=== PATIENT | male | born 1950 | race Caucasian/White ===

== ENCOUNTER → 2016-12-29 | Outpatient (CLI) | payer MEDICARE, BC ==
--- NOTE | 2016-12-29 16:47 | KCIC ---
EXAM: Lumbar spine MRI without contrast. HISTORY: Left lower extremity radiculopathy. TECHNIQUE: Multiplanar, multisequence magnetic resonance imaging of the lumbar spine was performed without contrast. COMPARISON: 04/10/2016 FINDINGS: There is grade 2 anterolisthesis of L5 on S1, measuring 17 mm. There are associated pars interarticularis defects at this level. There is 3 mm retrolisthesis of L4 and L5 and 2 mm retrolisthesis of L1 on L2. There is degenerative endplate remodeling with disc space narrowing and osteophytosis primarily at L5-S1. No suspicious osseous lesion is seen. There is no fracture. There is a small right renal cyst. The conus terminates at L1. At T11-T12, there is a shallow right paracentral disc protrusion superimposed on a disc bulge and endplate remodeling. There is minimal facet arthropathy. There is mild bilateral foraminal stenosis. At T12-L1, there is a minimal disc bulge and endplate remodeling. There is no stenosis. At L1-L2, there is a disc bulge with bilateral foraminal extra foraminal annular tears and endplate remodeling. There is no stenosis. At L2-L3, there is a disc bulge and endplate remodeling. There is no stenosis. At L3-L4, there is a broad-based left paracentral to foraminal disc protrusion and annular tear with minimal superior extrusion, minimally compared to the prior study. The superimposed on a bulge and endplate remodeling. There is no stenosis. At L4-L5, there is a shallow posterior central disc protrusion and annular tear superimposed on a disc bulge and endplate remodeling. There is mild facet arthropathy. There is no stenosis. At L5-S1, there is a disc bulge and endplate osteophytosis. There is grade 2 anterolisthesis with pars defects. There is severe bilateral foraminal stenosis. IMPRESSION: 1. Multilevel degenerative changes of the lumbar spine, described in detail above. This is not significantly changed compared to the prior study, with exception of suspected minimal decrease in a protrusion with minimal superior extrusion at L3-L4. 2. Stable grade 2 anterolisthesis of L5 on S1 with associated pars defects. The combination of listhesis and a disc bulge with endplate osteophytosis results in severe foraminal stenosis at this level. Electronically signed by: Vicky Smith MD (12/29/2016 4:44 PM) [facility]
== END | disposition home or self-care (01) ==
LOC: KCIC MRI 15:49
PROVIDERS: ATTEND Neurological Surgery
DX: M51.16 Intervertebral disc disorders with radiculopathy, lumbar region (principal); M47.896 Other spondylosis, lumbar region
CPT/HCPCS: 72148

== ENCOUNTER → 2017-01-15 | Outpatient (CLI) | payer MEDICARE, BC ==
[~2017-01-15] MED LIST: ASPI-482 PO; ATORVASTATIN CA80 MG PO; CETI10TA16 PO; DILT240C2 PO; DOCU-109 PO; OXYC10TA PO; OXYC10TA45 PO; PARO20TA3 PO; TAMS0.4C2 PO; TIZA4TAB PO
--- NOTE | 2017-01-15 15:38 | EKG ---
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
[2017-01-15 15:51] LABS: BASO % 1 % (0-3); EOS % 3 % (0-3); HEMATOCRIT 42.1 % (39.0-53.0); LYMPH % 26 % (24-48); MEAN CORPUSCULAR HEMOGLOBIN 32 pg (25-35); MEAN CORPUSCULAR HGB CONC 33 g/dL (31-37); MEAN CORPUSCULAR VOLUME 95 fL (79-100); MONO % 11 % (0-9); NEUT % 60 % (31-73); PLATELET COUNT 180 x10^3/uL (140-400); RED BLOOD COUNT 4.42 x10^6/uL (4.30-5.70); RED CELL DISTRIBUTION WIDTH 12.9 % (11.5-14.5); WHITE BLOOD COUNT 7.8 x10^3/uL (4.0-11.0)
[2017-01-15 16:13] LABS: ALBUMIN 3.9 g/dL (3.4-5.0); ALBUMIN/GLOBULIN RATIO 1.3 (1.0-1.7); CALCIUM 8.7 mg/dL (8.5-10.1); CREATININE 0.8 mg/dL (0.7-1.3); GFR 96.7; POTASSIUM 3.6 mmol/L (3.5-5.1); TOTAL BILIRUBIN 1.3 mg/dL (0.2-1.0)
[2017-01-15 16:17] LABS: PROTHROMBIN TIME PATIENT 12.4 SEC (11.7-14.0)
== END | disposition home or self-care (01) ==
LOC: SURGPAT 13:54
PROVIDERS: ATTEND Neurological Surgery
DX: I10 Essential (primary) hypertension (principal); M54.16 Radiculopathy, lumbar region; M48.06 Spinal stenosis, lumbar region; M43.16 Spondylolisthesis, lumbar region
CPT/HCPCS: 36415; 80053; 85025; 85610; 85730; 87641; 93005

== ENCOUNTER 2017-01-20 10:54 | Emergency (ER) | payer MEDICARE, BC ==
[~2017-01-20] VITALS: Ht 188 cm; Wt 89.8 kg
--- NOTE | 2017-01-20 12:21 | PHYS DOC ---
Past Medical History Past Medical History: CAD, High Cholesterol, Hypertension Past Surgical History: Other Additional Past Surgical Histo: stents Alcohol Use: Heavy Drug Use: None Adult General Chief Complaint Chief Complaint: FEVER HPI HPI Patient is a 66 year old male who had recent spinal surgery on by Dr. Owens. Patient has been doing well but yesterday started spiking fevers. patient states she's been having more frequent urination. Denies any cough or chest discomfort, pain with inspiration. Denies any neck chest or abdominal pain. He has some mild discomfort at the area of the surgery but is not any worse than when he was discharged. No sick contacts. Review of Systems Review of Systems Constitutional: Yes to fevers HENT: Denies nasal congestion or sore throat, no neck pain Respiratory: Denies cough or shortness of breath [] Cardiovascular: No chest pain[] GI: Denies abdominal pain, nausea, vomiting, bloody stools or diarrhea [] : Denies dysuria or hematuria. Yes to frequency of urination Musculoskeletal: Denies back pain or joint pain [] Integument: Denies rash or skin lesions [] Neurologic: Denies headache, focal weakness or sensory changes [] Current Medications Current Medications Current Medications Medications (Trade) Dose Ordered Sig/Britney Start Time Stop Time Status Last Admin Dose Admin Morphine Sulfate 4 mg 1X ONCE 01/20/17 14:30 01/20/17 14:31 DC 01/20/17 14:15 4 MG Allergies Allergies Allergies Coded Allergies Type Severity Reaction Last Updated Verified No Known Drug Allergies 01/18/17 No Physical Exam Physical Exam Constitutional: Well developed, well nourished, no acute distress, non-toxic appearance. [] HENT: Normocephalic, atraumatic, bilateral external ears normal, oropharynx moist, no oral exudates, nose normal. [] Eyes: EOMI, conjunctiva normal, no discharge. [] Neck: Normal range of motion, no tenderness, supple, no stridor. No LAD, no meningeal signs Cardiovascular:Heart rate regular rhythm, no murmur, equal pulses, normal perfusion Lungs & Thorax: Bilateral breath sounds clear to auscultation, no tachypnea Abdomen: Bowel sounds normal, soft, no tenderness, no masses, no pulsatile masses. [] Skin: Warm, dry, no erythema, no rash. [] Back: No tenderness, no CVA tenderness. Recent surgical scar that appears to be healing well; no signs of cellulitis,o discharge no signs of abscess. Extremities: No tenderness, no cyanosis, no DVT, ROM intact, no edema. [] Neurologic: Alert and oriented X 3, normal motor function,, no focal deficits noted. [] Psychologic: Affect normal, judgement normal, mood normal. [] Current Patient Data Vital Signs Vital Signs Date Time Temp Pulse Resp B/P (MAP) Pulse Ox O2 Delivery O2 Flow Rate FiO2 01/20/17 14:11 100.2 82 16 136/72 (93) 93 Room Air 100.2 Lab Values Laboratory Tests Test 01/20/17 12:23 01/20/17 12:32 White Blood Count 10.6 x10^3/uL (4.0-11.0) Red Blood Count 3.90 x10^6/uL (4.30-5.70) L Hemoglobin 12.5 g/dL (13.0-17.5) L Hematocrit 37.1 % (39.0-53.0) L Mean Corpuscular Volume 95 fL (79-100) Mean Corpuscular Hemoglobin 32 pg (25-35) Mean Corpuscular Hemoglobin Concent 34 g/dL (31-37) Red Cell Distribution Width 12.8 % (11.5-14.5) Platelet Count 154 x10^3/uL (140-400) Neutrophils (%) (Auto) 75 % (31-73) H Lymphocytes (%) (Auto) 11 % (24-48) L Monocytes (%) (Auto) 13 % (0-9) H Eosinophils (%) (Auto) 1 % (0-3) Basophils (%) (Auto) 0 % (0-3) Neutrophils # (Auto) 8.0 x10^3uL (1.8-7.7) H Lymphocytes # (Auto) 1.1 x10^3/uL (1.0-4.8) Monocytes # (Auto) 1.4 x10^3/uL (0.0-1.1) H Eosinophils # (Auto) 0.1 x10^3/uL (0.0-0.7) Basophils # (Auto) 0.0 x10^3/uL (0.0-0.2) Sodium Level 136 mmol/L (136-145) Potassium Level 4.0 mmol/L (3.5-5.1) Chloride Level 98 mmol/L (98-107) Carbon Dioxide Level 33 mmol/L (21-32) H Anion Gap 5 (6-14) L Blood Urea Nitrogen 14 mg/dL (8-26) Creatinine 0.8 mg/dL (0.7-1.3) Estimated GFR (Cockcroft-Gault) 96.7 Glucose Level 126 mg/dL (70-99) H Lactic Acid Level 1.5 mmol/L (0.4-2.0) Calcium Level 9.0 mg/dL (8.5-10.1) Urine Collection Type Unknown Urine Color Yellow Urine Clarity Clear Urine pH 7.0 Urine Specific [place] 1.010 Urine Protein Negative mg/dL (NEG-TRACE) Urine Glucose (UA) Negative mg/dL (NEG) Urine Ketones (Stick) Negative mg/dL (NEG) Urine Blood Small (NEG) Urine Nitrite Negative (NEG) Urine Bilirubin Negative (NEG) Urine Urobilinogen Dipstick 1.0 mg/dL (0.2 mg/dL) Urine Leukocyte Esterase Negative (NEG) Urine RBC 0 /HPF (0-2) Urine WBC 0 /HPF (0-4) Urine Bacteria 0 /HPF (0-FEW) Laboratory Tests 01/20/17 12:23 Laboratory Tests 01/20/17 12:23 EKG EKG [] Radiology/Procedures Radiology/Procedures [] Course & Med Decision Making Course & Med Decision Making Pertinent Labs and Imaging studies reviewed. (See chart for details) 1518 Pt discussed with PA working for neurosurgeon, labs reviewed, she discussed pt with neurosurgeon and they are ok with discharge home. They will call pt next week to check on him. this all discussed with the patient who agrees with plan. Strict return precautions discussed with pt and family, no reservations going home. [address] pt also discussed with Dr Gonzalez, no objections on plan to discharge. [] Dragon Disclaimer Dragon Disclaimer This electronic medical record was generated, in whole or in part, using a voice recognition dictation system. Departure Departure Impression: Primary Impression: Fever Disposition: 01 HOME, SELF-CARE Condition: STABLE Referrals: UNKNOWN PCP NAME (PCP) please follow up with your pcp in 2-4 days for recheck and re-evaluation. Please follow up with your neurosurgeon as scheduled. Patient Instructions: Fever, Fever of Unknown Origin Wilfred HANCOCK MD Jan 20, 2017 12:21
[2017-01-20 12:40] LABS: BASO % 0 % (0-3); EOS % 1 % (0-3); HEMATOCRIT 37.1 % (39.0-53.0); HEMOGLOBIN 12.5 g/dL (13.0-17.5); LYMPH # 1.1 x10^3/uL (1.0-4.8); LYMPH % 11 % (24-48); MEAN CORPUSCULAR HEMOGLOBIN 32 pg (25-35); MEAN CORPUSCULAR HGB CONC 34 g/dL (31-37); MEAN CORPUSCULAR VOLUME 95 fL (79-100); MONO % 13 % (0-9); NEUT % 75 % (31-73); PLATELET COUNT 154 x10^3/uL (140-400); RED CELL DISTRIBUTION WIDTH 12.8 % (11.5-14.5); WHITE BLOOD COUNT 10.6 x10^3/uL (4.0-11.0)
[2017-01-20 12:41] LABS: BILIRUBIN,URINE NEGATIVE (NEG); GLUCOSE,URINE NEGATIVE (NEG); NITRITE,URINE NEGATIVE (NEG); PROTEIN,URINE NEGATIVE (NEG-TRACE)
[2017-01-20 12:47] LABS: CREATININE 0.8 mg/dL (0.7-1.3); GFR 96.7
[2017-01-20 12:53] LABS: BACTERIA,URINE 0 /HPF (0-FEW); RBC,URINE 0 /HPF (0-2); WBC,URINE 0 /HPF (0-4)
[2017-01-20] MEDS ORDERED: MORPHINE SULFATE 4 MG/ML DISP.SYRIN. IM ONE (14:00)
--- NOTE | 2017-01-20 14:15 | RAD ---
Examination: Two-view chest History: History of fever Comparison: None available Findings: The cardiomediastinal silhouette grossly appears unremarkable. No acute infiltrate or visualized pneumothorax. Impression : No acute cardiopulmonary findings.
[2017-01-20] MEDS ORDERED: MORPHINE SULFATE 4 MG/ML DISP.SYRIN. IV ONE (14:30)
[2017-01-20 14:59] VITALS: BP 133/71
== END 2017-01-20 15:36 | disposition home or self-care (01) ==
LOC: ER 10:54
DX: R50.9 Fever, unspecified (principal); R35.0 Frequency of micturition; I25.10 Atherosclerotic heart disease of native coronary artery without angina pectoris; E78.00 Pure hypercholesterolemia, unspecified; I10 Essential (primary) hypertension; Z95.5 Presence of coronary angioplasty implant and graft
CPT/HCPCS: 36415; 71020; 80048; 81001; 83605; 85025; 96374; 99285; J2270

== ENCOUNTER 2017-02-05 10:55 | Inpatient (IN) | payer MEDICARE, BC ==
[~2017-02-05] VITALS: Ht 188 cm; Wt 89.8 kg
[2017-02-05 03:41] VITALS: BP 127/73
[2017-02-05] MEDS ORDERED: tiZANidine 4 MG TABLET. PO PRN (11:15)
[2017-02-05] MEDS ORDERED: ZOLPIDEM 5 MG TABLET. PO PRN (11:30)
[2017-02-05] MEDS ORDERED: MAG HYDROX/ALUMINUM HYD/SIMETH 30 ML ORAL.SUSP PO PRN (11:30)
[2017-02-05] MEDS ORDERED: ACETAMINOPHEN 325 MG TABLET. PO PRN ×2 (11:30→15:00)
[2017-02-05] MEDS ORDERED: ONDANSETRON PF 4 MG/2 ML VIAL. IV PRN (11:30)
[2017-02-05] MEDS ORDERED: CALCIUM CARBONATE 500 MG TAB.CHEW PO PRN (11:30)
[2017-02-05] MEDS ORDERED: MAGNESIUM HYDROXIDE 2,400 MG/30 ML ORAL.SUSP. PO PRN (11:30)
[2017-02-05] MEDS ORDERED: diphenhydrAMINE 50 MG/ML VIAL IV PRN (11:30)
[2017-02-05] MEDS ORDERED: diphenhydrAMINE HCL 25 MG CAPSULE PO PRN (11:30)
[2017-02-05] MEDS ORDERED: 0.9 % SODIUM CHLORIDE 10 ML DISP.SYRIN. IV PRN (11:30)
--- NOTE | 2017-02-05 11:34 | PDOC ---
Provider Note Provider Note H & P dictated # [id number] RANDOLPH MASSEY MD Feb 05, 2017 11:34
[2017-02-05 11:45] VITALS: BP 129/71
--- NOTE | 2017-02-05 11:53 | HP ---
ADMIT DATE: 02/05/2017 DATE OF SERVICE: 02/05/2017 HISTORY OF PRESENT ILLNESS: The patient is a pleasant 66-year-old male who underwent lumbar surgery on 01/18/2017, which was a lumbar hemilaminotomy at L5-S1 on the left with posterior instrumentation and fusion at L5-S1. He did well following that surgery and was discharged home. He was seen for a postoperative check in the office on 01/31/2017 and was doing well with significant improvement in his pain. He reports that on 02/03/2017, he had some drainage from his incision and had some intermittent fever. He contacted us this morning and was asked to come in for an incision check. PAST MEDICAL HISTORY: Arthritis, heart disease. PAST SURGICAL HISTORY: Knee replacement in 2011, cardiac stents in 2013, lumbar surgery 01/18/2017 as described above. CURRENT MEDICATIONS: Atorvastatin, diltiazem, oxycodone, OxyContin, tizanidine, Paxil, tamsulosin. ALLERGIES: No known drug allergies. FAMILY HISTORY: Heart disease. 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 . Exercises regularly. Does not smoke. Drinks 2 alcoholic beverages per day. REVIEW OF SYSTEMS: A 12-point review of systems was obtained and is noncontributory except that mentioned above. PHYSICAL EXAMINATION: GENERAL: Alert, pleasant, in no acute distress. HEAD: Normocephalic, atraumatic. SKIN: Warm and dry. MUSCULOSKELETAL: Lumbar paraspinal muscle bulk is normal, restricted range of motion of the lumbar spine and he is wearing the LSO. [id number] tenderness of the lower lumbar spine with palpation, especially on the right side, normal range of motion of the lower extremities bilaterally. EXTREMITIES: No clubbing, cyanosis or edema. NEUROLOGIC: He is alert and oriented x 3. Strength is 5/5 in the bilateral lower extremities. Sensory was intact to light touch in the lower extremities, reflexes were present and symmetric in the lower extremities bilaterally, normal gait. BACK: He has 2 paramedian lumbar incisions. On the right incision, there is erythema and drainage from the inferior portion. The drainage is yellow and purulent. ASSESSMENT AND PLAN: We will admit for further evaluation and treatment. We will order a lumbar CT as well as lab studies and culture of the wound. RANDOLPH MASSEY MD DR: Constance JOB#: [id number] / [id number]
[2017-02-05] MEDS ORDERED: DOCUSATE SODIUM 100 MG CAPSULE. PO SCH ×2 (12:00)
[2017-02-05] MEDS: CETIRIZINE HCL 10 MG TABLET. PO SCH (12:00)
[2017-02-05] MEDS: TAMSULOSIN 0.4 MG CAP.ER.24H. PO SCH (12:00)
[2017-02-05] MEDS: PARoxetine 20 MG TABLET PO SCH (12:00)
[2017-02-05] MEDS: oxyCODONE ER 10 MG TAB.ER.12H PO SCH ×2 (12:00→20:39)
[2017-02-05] MEDS: ASPIRIN ENTERIC COATED 81 MG TABLET.DR. PO SCH (12:02)
[2017-02-05 12:10] LABS: BASO % 1 % (0-3); EOS % 2 % (0-3); HEMATOCRIT 36.2 % (39.0-53.0); HEMOGLOBIN 12.2 g/dL (13.0-17.5); LYMPH # 1.7 x10^3/uL (1.0-4.8); LYMPH % 22 % (24-48); MEAN CORPUSCULAR HEMOGLOBIN 31 pg (25-35); MEAN CORPUSCULAR HGB CONC 34 g/dL (31-37); MEAN CORPUSCULAR VOLUME 93 fL (79-100); MONO % 11 % (0-9); NEUT % 65 % (31-73); PLATELET COUNT 314 x10^3/uL (140-400); RED BLOOD COUNT 3.89 x10^6/uL (4.30-5.70); RED CELL DISTRIBUTION WIDTH 12.6 % (11.5-14.5); WHITE BLOOD COUNT 7.7 x10^3/uL (4.0-11.0)
[2017-02-05 12:29] LABS: ALBUMIN 3.1 g/dL (3.4-5.0); ALBUMIN/GLOBULIN RATIO 0.8 (1.0-1.7); CALCIUM 8.7 mg/dL (8.5-10.1); CREATININE 0.8 mg/dL (0.7-1.3); GFR 96.7; POTASSIUM 3.6 mmol/L (3.5-5.1); TOTAL BILIRUBIN 0.9 mg/dL (0.2-1.0); TOTAL PROTEIN 6.8 g/dL (6.4-8.2)
[2017-02-05] MEDS ORDERED: oxyCODONE IR 5 MG TABLET PO PRN ×3 (12:30→16:15)
--- NOTE | 2017-02-05 13:36 | PDOC ---
Infectious Disease Note Vital Sign Vital Signs Vital Signs Date Time Temp Pulse Resp B/P (MAP) Pulse Ox O2 Delivery O2 Flow Rate FiO2 02/05/17 12:30 Room Air Labs Lab Laboratory Tests Test 02/05/17 11:40 White Blood Count 7.7 x10^3/uL (4.0-11.0) Red Blood Count 3.89 x10^6/uL (4.30-5.70) Hemoglobin 12.2 g/dL (13.0-17.5) Hematocrit 36.2 % (39.0-53.0) Mean Corpuscular Volume 93 fL (79-100) Mean Corpuscular Hemoglobin 31 pg (25-35) Mean Corpuscular Hemoglobin Concent 34 g/dL (31-37) Red Cell Distribution Width 12.6 % (11.5-14.5) Platelet Count 314 x10^3/uL (140-400) Neutrophils (%) (Auto) 65 % (31-73) Lymphocytes (%) (Auto) 22 % (24-48) Monocytes (%) (Auto) 11 % (0-9) Eosinophils (%) (Auto) 2 % (0-3) Basophils (%) (Auto) 1 % (0-3) Neutrophils # (Auto) 5.0 x10^3uL (1.8-7.7) Lymphocytes # (Auto) 1.7 x10^3/uL (1.0-4.8) Monocytes # (Auto) 0.9 x10^3/uL (0.0-1.1) Eosinophils # (Auto) 0.2 x10^3/uL (0.0-0.7) Basophils # (Auto) 0.0 x10^3/uL (0.0-0.2) Sodium Level 139 mmol/L (136-145) Potassium Level 3.6 mmol/L (3.5-5.1) Chloride Level 102 mmol/L (98-107) Carbon Dioxide Level 30 mmol/L (21-32) Anion Gap 7 (6-14) Blood Urea Nitrogen 12 mg/dL (8-26) Creatinine 0.8 mg/dL (0.7-1.3) Estimated GFR (Cockcroft-Gault) 96.7 BUN/Creatinine Ratio 15 (6-20) Glucose Level 110 mg/dL (70-99) Calcium Level 8.7 mg/dL (8.5-10.1) Total Bilirubin 0.9 mg/dL (0.2-1.0) Aspartate Amino Transf (AST/SGOT) 27 U/L (15-37) Alanine Aminotransferase (ALT/SGPT) 36 U/L (16-63) Alkaline Phosphatase 61 U/L (46-116) Total Protein 6.8 g/dL (6.4-8.2) Albumin 3.1 g/dL (3.4-5.0) Albumin/Globulin Ratio 0.8 (1.0-1.7) Objective Assessment Post op spine infection Fever OA CAD Plan Plan of Care culture done vanc and zosyn ct spine supportive care KARRIE MARTINEZ MD Feb 05, 2017 13:36
[2017-02-05] MEDS ORDERED: VANCOMYCIN 2 GM in IV NORMAL SALINE 500ML BAG 500 ML IV ONE (14:00)
[2017-02-05 15:00] VITALS: BP 133/75
[2017-02-05] MEDS ORDERED: NITROGLYCERIN SUBLINGUAL 0.4 MG BOTTLE OF 25. SL PRN (15:00)
--- NOTE | 2017-02-05 15:15 | EKG ---
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 1ST DEGREE AV BLOCK LEFTWARD AXIS ABNORMAL ECG Electronically Signed On 02-08-2017 11:13:28 CDT by Doreen Williamson
--- NOTE | 2017-02-05 16:14 | PDOC ---
Provider Note Provider Note medical consult dictated # [id number] NANY WANG MD Feb 05, 2017 16:14
--- NOTE | 2017-02-05 16:14 | RAD ---
Portable chest, 02/05/2017: History: Fever and low back pain, infection Comparison is made to a study from 01/20/2017. The heart size and pulmonary vascularity are normal. No pulmonary infiltrates are seen. There is no evidence of pleural fluid. There is a mild thoracic scoliosis. IMPRESSION: No acute cardiopulmonary abnormality is detected.
[2017-02-05] MEDS: oxyCODONE IR 5 MG TABLET PO PRN ×2 (16:26→20:46)
--- NOTE | 2017-02-05 16:52 | RAD ---
CT of the lumbar spine without contrast, 02/05/2017: History: Postop infection Noncontrast scans were obtained with multiplanar reconstructions produced. Comparison is made to a study from 01/18/2017. There has been interval placement of bilateral pedicle screws at L5 and S1 attached to longitudinally oriented posterior fixation rods. Associated artifacts degrade image quality at this level. There is a moderate spondylolisthesis at L5-S1, similar to that seen on the preoperative images. There is chronic bilateral spondylolysis at L5. There is subcutaneous edema in the lower lumbar spine. There are several small radiopacities compatible with bone fragments at the surgical site. There is a suggestion of a more discrete, small elongated fluid collection within the subcutaneous edema along the posterior aspect of the left paraspinous musculature extending from L2-3 to L4-5. This is best seen on sagittal image 24 of series #6 and axial image 49 of series #2. This process measures approximately 2 cm in greatest width and 6 to 7 cm in craniocaudad extent. It may be a seroma or hematoma, although infection cannot be excluded. There is moderate posterior disc bulging at the midline at L4-5. There are mild posterior disc bulges at L2-3 and L3-4. No high-grade central spinal stenosis is evident. IMPRESSION: 1. Interval posterior spinal fusion and instrumentation at L5-S1. 2. Unchanged moderate spondylolisthesis at L5-S1. 3. Subcutaneous edema posteriorly at the surgical site with a probable small discrete left superficial fluid collection as described above. PQRS Compliance Statement: One or more of the following individualized dose reduction techniques were utilized for this examination: 1. Automated exposure control 2. Adjustment of the mA and/or kV according to patient size 3. Use of iterative reconstruction technique
[2017-02-05] MEDS: PIPERACILLIN/TAZOBACTAM 3.375 GM in IV NORMAL SALINE 50ML 50 ML IV SCH ×3 (17:23→23:31)
[2017-02-05] MEDS: VANCOMYCIN PER PHARMACY MC PRN ×2 (18:35→18:36)
[2017-02-05 19:35] VITALS: BP 136/71
[2017-02-05] MEDS: SENNOSIDES/DOCUSATE 8.6/50MG TABLET. PO SCH (20:38)
[2017-02-05] MEDS: ATORVASTATIN CALCIUM 40 MG TABLET. PO SCH (20:38)
[2017-02-05 23:40] VITALS: BP 126/74
--- NOTE | 2017-02-06 00:43 | CONS ---
DATE OF CONSULTATION: 02/05/2017 REQUESTING PHYSICIAN: Cisco Gustafson MD. REASON FOR CONSULTATION: Post-surgical infection. HISTORY OF PRESENT ILLNESS: This is a 66-year-old gentleman, who underwent lumbar surgery on 01/18/2017. The patient had lumbar laminotomy at L5-S1 in left with posterior instrumentation and fusion at L5-S1. The patient subsequently was seen in the ER with fever at the time a week ago. At that time, he did not have any drainage, but this last Sunday or so, he started draining from the back. The patient believes when he was seen in the ER, there was no blood culture or anything was done. The patient now is seen in the office and admitted because of the purulent drainage from the spine. The patient still says off and on he is running fever. Denies any nausea, vomiting, or diarrhea. Denies any chest pain, shortness of breath, abdominal pain, urinary symptoms or bowel symptoms. The patient is otherwise comfortable and feeling good. PAST MEDICAL HISTORY: Positive for coronary artery disease, osteoarthritis and now on 01/18/2017, lumbar surgery with instrumentation. SOCIAL HISTORY: Negative for smoking, alcohol, or illicit drug use. ALLERGIES: No known drug allergies. REVIEW OF SYSTEMS: As per HPI. All other systems reviewed are negative. PHYSICAL EXAMINATION: GENERAL: Alert, oriented gentleman, not in any distress. VITAL SIGNS: Stable, afebrile. HEENT: NAD. NECK: Supple, no JVP, no lymphadenopathy. LUNGS: Clear. HEART: S1, S2 regular. ABDOMEN: Benign. EXTREMITIES: No edema or cyanosis. SKIN: Unremarkable. BACK: Incision is well approximated, but there is purulent drainage from the lower part of the incision as well as upper part of the incision with some erythema and tenderness present. NEUROLOGIC: Intact. LABORATORY DATA: White count is normal. BUN and creatinine is normal. Culture: I personally took the culture from the back. CT scan is ordered, it is pending. IMPRESSION: 1. Postsurgical spine infection. 2. Status post L5-S1 laminectomy and instrumentation with fusion on 01/18/2017. 3. Fever. 4. Osteoarthritis. 5. Coronary artery disease. RECOMMENDATIONS: As I said, culture was done. I would start vancomycin and Zosyn. CT scan is pending to rule out any abscess or anything like that and most likely, the hardware may have to be removed. Thank you very much, Dr. Gustafson, for giving me the opportunity to participate in this patient's care. KARRIE MARTINEZ MD DR: DINESH/tammie JOB#: [id number] / [id number]
[2017-02-06] MEDS: oxyCODONE IR 5 MG TABLET PO PRN ×6 (01:08→22:23)
[2017-02-06] MEDS: VANCOMYCIN 1.25 GM in IV NORMAL SALINE 250ML 250 ML IV SCH ×2 (02:55→15:26)
[2017-02-06 03:41] VITALS: BP 127/73
--- NOTE | 2017-02-06 04:49 | CONS ---
DATE OF CONSULTATION: 02/05/2017 He is in room 430. ATTENDING PHYSICIAN: Dr. Gustafson. REASON FOR CONSULTATION: Medical evaluation and management. HISTORY OF PRESENT ILLNESS: The patient is a 66-year-old white male who underwent lumbar surgery on 01/18/2017 at [facility] and had a lumbar hemilaminotomy at L5-S1 and L5-S1 fusion. He was dismissed to home and did fine and apparently was seen in the office for his postoperative check on 01/31/2017 and was doing fine. On February 03, he developed some wound drainage and also felt had fever. He was admitted to [facility] on 02/05/2017 and was started on IV vancomycin and Zosyn. The reason for this consultation is for medical evaluation and management. The patient is complaining of low back pain, but denies any sciatica. He pulled a muscle on his right proximal anterior thigh also. He noted quite a bit of drainage 2 days prior to admission in the lumbar area. He was having intermittent fever, which he described as low grade. He does not have any cough or dysuria. He was subsequently admitted to the hospital as mentioned and was started on antibiotics. ALLERGIES AND INTOLERANCES: None. MEDICATIONS: At this time he is on Zosyn 3.375 grams IV q. 6 hours, vancomycin per the pharmacist, Tylenol 650 mg every 4 hours p.r.n., aspirin 81 mg every day, Atorvastatin 80 mg at bedtime. He also takes Zyrtec 10 mg every day, diltiazem ER 240 mg every day, Colace 100 mg b.i.d., OxyContin 10 mg every 12 hours, oxycodone 10-20 mg every 6 hours p.r.n., Paxil 20 mg every day, Flomax 0.4 mg every day, tizanidine 4 mg t.i.d. p.r.n., Ambien 5 mg at bedtime p.r.n. PAST MEDICAL HISTORY: Significant for coronary artery disease and paroxysmal supraventricular tachycardia. He has had lumbar spondylosis. He had the recent L5-S1 lumbar hemilaminotomy with an L5-S1 fusion. He has chronic pain. He has hyperlipidemia as mentioned. He has osteoarthritis with a previous right total knee arthroplasty. Benign prostatic hypertrophy. He had a benign colon polypectomy in 2000, arthroscopy in 2005 involving his right knee, 4 stents to the LAD and 1 to the circumflex in January 2014. His right total knee arthroplasty was in 2012. He had a colonoscopy in 2010. He has gastroesophageal reflux disease, internal hemorrhoids in 2010, osteoarthritis as mentioned. 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 He is . He does not smoke cigarettes, does not drink alcohol. FAMILY HISTORY: Noncontributory. REVIEW OF SYSTEMS: GENERAL: He has had the fever. CARDIOVASCULAR: No chest pain. PULMONARY: No cough or shortness of breath. GASTROINTESTINAL: He had a bowel movement today. SKIN: No rashes. NEUROLOGIC: No focal weakness or sciatica. ENDOCRINE: No diabetes mellitus. Rest of systems reviewed is negative except for skin he has some redness that was noted in his back wound and some drainage. PHYSICAL EXAMINATION: VITAL SIGNS: Temperature is 97.9 degrees, pulse is 58, respiratory rate 16, blood pressure 133/75, oxygen saturation 94% on room air. HEENT: Eyes: Gaze is conjugate. Mouth: Tongue is midline. NECK: There is no cervical lymphadenopathy or thyroid enlargement. HEART: Reveals an S1, S2. There is no S3 or murmur. LUNGS: Clear. ABDOMEN: Soft, nontender with no hepatosplenomegaly or masses. EXTREMITIES: Lower extremities without edema. NEUROLOGIC: Revealed no facial weakness. He has got 5/5 bilateral handgrips and biceps, able to dorsi and plantarflex both feet, bend his knees. SKIN: He had a scar over his right knee from his previous right total knee arthroplasty. Examination of his lower back shows that the wound is red and he does have some drainage coming out of the wound. LABORATORY DATA: White count 7.7, hemoglobin 12.2 with a platelet count 314,000, 65 polys and 22 lymphocytes. Sodium 139, potassium 3.6, chloride 102, total CO2 of 30, BUN 12, creatinine 0.6, blood sugar 110. Liver function tests normal. Albumin 3.1. ASSESSMENT: 1. Lumbar wound infection. 2. Recent lumbar L5-S1 hemilaminotomy with L5-S1 fusion. 3. Coronary artery disease. 4. History of paroxysmal supraventricular tachycardia. 5. Chronic pain. 6. Lumbar spondylosis. 7. Osteoarthritis with a previous right total knee arthroplasty. 8. Hyperlipidemia. 9. Coronary artery disease with previous coronary artery angioplasty and stents. PLAN: At this time is to wait for the wound culture from the lumbar wound, which has been sent. He had a CAT scan of the lumbar spine, the report is pending. I ordered an EKG and a chest x-ray. I am repeating CBC and BMP tomorrow. He also had a sed rate done, which was 65. He is complaining of pain, so we will increase the oxycodone to 10-20 mg every 4 hours p.r.n. instead of every 6 hours p.r.n. and continue with the OxyContin. We will continue with the aspirin for his coronary artery disease, the diltiazem for his paroxysmal supraventricular tachycardia. We will also get a urinalysis. Wait for the EKG and chest x-ray results also. Nitroglycerin sublingual has been ordered p.r.n. also. We will continue with IV vancomycin and IV Zosyn. Pharmacist will be managing the vancomycin. He has already been seen in consultation by Dr. Kareem Irene for infectious disease. Thank you very much, Dr. Gustafson, for the consultation. NANY WANG MD DR: FATOU/tammie JOB#: [id number] / [id number]
[2017-02-06] MEDS: PIPERACILLIN/TAZOBACTAM 3.375 GM in IV NORMAL SALINE 50ML 50 ML IV SCH ×3 (05:09→17:45)
[2017-02-06 06:17] LABS: CALCIUM 8.6 mg/dL (8.5-10.1); CREATININE 0.8 mg/dL (0.7-1.3); GFR 96.7; POTASSIUM 3.5 mmol/L (3.5-5.1)
[2017-02-06 06:23] LABS: BASO % 1 % (0-3); EOS % 3 % (0-3); HEMATOCRIT 34.8 % (39.0-53.0); HEMOGLOBIN 11.9 g/dL (13.0-17.5); LYMPH # 1.8 x10^3/uL (1.0-4.8); LYMPH % 29 % (24-48); MEAN CORPUSCULAR HEMOGLOBIN 31 pg (25-35); MEAN CORPUSCULAR HGB CONC 34 g/dL (31-37); MEAN CORPUSCULAR VOLUME 91 fL (79-100); MONO % 11 % (0-9); NEUT % 56 % (31-73); PLATELET COUNT 304 x10^3/uL (140-400); RED BLOOD COUNT 3.81 x10^6/uL (4.30-5.70); RED CELL DISTRIBUTION WIDTH 12.8 % (11.5-14.5); WHITE BLOOD COUNT 6.2 x10^3/uL (4.0-11.0)
[2017-02-06 07:47] VITALS: BP 135/71
[2017-02-06] MEDS: POLYETHYLENE GLYCOL 3350 17 GM PACKET. PO SCH (08:49)
[2017-02-06] MEDS: PARoxetine 20 MG TABLET PO SCH (08:50)
[2017-02-06] MEDS: TAMSULOSIN 0.4 MG CAP.ER.24H. PO SCH (08:50)
[2017-02-06] MEDS: CETIRIZINE HCL 10 MG TABLET. PO SCH (08:50)
[2017-02-06] MEDS: ASPIRIN ENTERIC COATED 81 MG TABLET.DR. PO SCH (08:50)
[2017-02-06] MEDS: oxyCODONE ER 10 MG TAB.ER.12H PO SCH ×2 (08:51→21:02)
--- NOTE | 2017-02-06 09:46 | PDOC ---
Infectious Disease Note Subjective Subjective pt feeling good ROS ROS GEN: Denies fevers, chills, sweats HEENT: Denies blurred vision, sore throat CV: Denies chest pain RESP: Denies shortness of air, cough GI: Denies n/v/d NEURO: Denies confusion, dizziness MSK: Denies weakness, joint pain/swelling Vital Sign Vital Signs Vital Signs Date Time Temp Pulse Resp B/P (MAP) Pulse Ox O2 Delivery O2 Flow Rate FiO2 02/06/17 08:51 Room Air 02/06/17 08:50 57 135/71 02/06/17 07:47 98.5 18 94 98.5 Physical Exam PHYSICAL EXAM GENERAL: NAD, Alert HEENT: PERRL, OC/OP NECK: Supple, no JVD, no LN LUNGS: Clear HEART: S1S2, no gallop, no murmur ABD: Soft, NT, no organomegaly, no rebound EXT: No edema, no cyanosis 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: Alert, oriented x 3, no focal neurologic deficit SKIN: No rash,, incision with purulent drainage IV: ok Labs Lab Laboratory Tests Test 02/05/17 11:40 02/06/17 05:35 White Blood Count 7.7 x10^3/uL (4.0-11.0) 6.2 x10^3/uL (4.0-11.0) Red Blood Count 3.89 x10^6/uL (4.30-5.70) 3.81 x10^6/uL (4.30-5.70) Hemoglobin 12.2 g/dL (13.0-17.5) 11.9 g/dL (13.0-17.5) Hematocrit 36.2 % (39.0-53.0) 34.8 % (39.0-53.0) Mean Corpuscular Volume 93 fL (79-100) 91 fL (79-100) Mean Corpuscular Hemoglobin 31 pg (25-35) 31 pg (25-35) Mean Corpuscular Hemoglobin Concent 34 g/dL (31-37) 34 g/dL (31-37) Red Cell Distribution Width 12.6 % (11.5-14.5) 12.8 % (11.5-14.5) Platelet Count 314 x10^3/uL (140-400) 304 x10^3/uL (140-400) Neutrophils (%) (Auto) 65 % (31-73) 56 % (31-73) Lymphocytes (%) (Auto) 22 % (24-48) 29 % (24-48) Monocytes (%) (Auto) 11 % (0-9) 11 % (0-9) Eosinophils (%) (Auto) 2 % (0-3) 3 % (0-3) Basophils (%) (Auto) 1 % (0-3) 1 % (0-3) Neutrophils # (Auto) 5.0 x10^3uL (1.8-7.7) 3.4 x10^3uL (1.8-7.7) Lymphocytes # (Auto) 1.7 x10^3/uL (1.0-4.8) 1.8 x10^3/uL (1.0-4.8) Monocytes # (Auto) 0.9 x10^3/uL (0.0-1.1) 0.7 x10^3/uL (0.0-1.1) Eosinophils # (Auto) 0.2 x10^3/uL (0.0-0.7) 0.2 x10^3/uL (0.0-0.7) Basophils # (Auto) 0.0 x10^3/uL (0.0-0.2) 0.0 x10^3/uL (0.0-0.2) Erythrocyte Sedimentation Rate 65 (0-15) Sodium Level 139 mmol/L (136-145) 142 mmol/L (136-145) Potassium Level 3.6 mmol/L (3.5-5.1) 3.5 mmol/L (3.5-5.1) Chloride Level 102 mmol/L (98-107) 105 mmol/L (98-107) Carbon Dioxide Level 30 mmol/L (21-32) 30 mmol/L (21-32) Anion Gap 7 (6-14) 7 (6-14) Blood Urea Nitrogen 12 mg/dL (8-26) 8 mg/dL (8-26) Creatinine 0.8 mg/dL (0.7-1.3) 0.8 mg/dL (0.7-1.3) Estimated GFR (Cockcroft-Gault) 96.7 96.7 BUN/Creatinine Ratio 15 (6-20) Glucose Level 110 mg/dL (70-99) 98 mg/dL (70-99) Calcium Level 8.7 mg/dL (8.5-10.1) 8.6 mg/dL (8.5-10.1) Total Bilirubin 0.9 mg/dL (0.2-1.0) Aspartate Amino Transf (AST/SGOT) 27 U/L (15-37) Alanine Aminotransferase (ALT/SGPT) 36 U/L (16-63) Alkaline Phosphatase 61 U/L (46-116) Total Protein 6.8 g/dL (6.4-8.2) Albumin 3.1 g/dL (3.4-5.0) Albumin/Globulin Ratio 0.8 (1.0-1.7) Micro culture + staph Objective Assessment Post op spine infection Fever OA CAD Plan Plan of Care vanc and zosyn ct spine noted supportive care d/w dr Gonzalez will d/w KARRIE Bush MD Feb 06, 2017 09:46
--- NOTE | 2017-02-06 09:54 | PDOC ---
PROGRESS NOTES Subjective Subjective pus expressed from lumbar wound. afebrile. ct scan lumbar spine and lab reviewed. discussed with dr. иван lozada. Objective Objective Vital Signs Date Time Temp Pulse Resp B/P (MAP) Pulse Ox O2 Delivery O2 Flow Rate FiO2 02/06/17 08:51 Room Air 02/06/17 08:50 57 135/71 02/06/17 07:47 98.5 18 94 98.5 Intake and Output 02/07/17 07:00 # Bowel Movements 1 Physical Exam Abdomen: Soft Heart: Regular rate, Normal S1, Normal S2 Extremities: No edema General: Alert HEENT: Atraumatic Lungs: Clear to auscultation Neuro: Normal speech Psych/Mental Status: Mental status NL Skin: No rashes, Other (lumbar wound red. pus expressed from upper portion of wound) Assessment Assessment 1. Lumbar wound infection 2. Recent lumbar L5-S1 hemilaminotomy with L5-S1 fusion. 3. Coronary artery disease. 4. History of paroxysmal supraventricular tachycardia. 5. Chronic pain. 6. Lumbar spondylosis. 7. Osteoarthritis with a previous right total knee arthroplasty. 8. Hyperlipidemia. 9. Coronary artery disease with previous coronary artery angioplasty and stents. Plan Plan of Care await wound culture iv vancomycin and zosyn await dr. oswald input kcl today Comment Review of Relevant I have reviewed the following items abelardo (where applicable) has been applied. Labs Laboratory Tests Test 02/05/17 11:40 02/06/17 05:35 White Blood Count 7.7 x10^3/uL (4.0-11.0) 6.2 x10^3/uL (4.0-11.0) Red Blood Count 3.89 x10^6/uL (4.30-5.70) 3.81 x10^6/uL (4.30-5.70) Hemoglobin 12.2 g/dL (13.0-17.5) 11.9 g/dL (13.0-17.5) Hematocrit 36.2 % (39.0-53.0) 34.8 % (39.0-53.0) Mean Corpuscular Volume 93 fL (79-100) 91 fL (79-100) Mean Corpuscular Hemoglobin 31 pg (25-35) 31 pg (25-35) Mean Corpuscular Hemoglobin Concent 34 g/dL (31-37) 34 g/dL (31-37) Red Cell Distribution Width 12.6 % (11.5-14.5) 12.8 % (11.5-14.5) Platelet Count 314 x10^3/uL (140-400) 304 x10^3/uL (140-400) Neutrophils (%) (Auto) 65 % (31-73) 56 % (31-73) Lymphocytes (%) (Auto) 22 % (24-48) 29 % (24-48) Monocytes (%) (Auto) 11 % (0-9) 11 % (0-9) Eosinophils (%) (Auto) 2 % (0-3) 3 % (0-3) Basophils (%) (Auto) 1 % (0-3) 1 % (0-3) Neutrophils # (Auto) 5.0 x10^3uL (1.8-7.7) 3.4 x10^3uL (1.8-7.7) Lymphocytes # (Auto) 1.7 x10^3/uL (1.0-4.8) 1.8 x10^3/uL (1.0-4.8) Monocytes # (Auto) 0.9 x10^3/uL (0.0-1.1) 0.7 x10^3/uL (0.0-1.1) Eosinophils # (Auto) 0.2 x10^3/uL (0.0-0.7) 0.2 x10^3/uL (0.0-0.7) Basophils # (Auto) 0.0 x10^3/uL (0.0-0.2) 0.0 x10^3/uL (0.0-0.2) Erythrocyte Sedimentation Rate 65 (0-15) Sodium Level 139 mmol/L (136-145) 142 mmol/L (136-145) Potassium Level 3.6 mmol/L (3.5-5.1) 3.5 mmol/L (3.5-5.1) Chloride Level 102 mmol/L (98-107) 105 mmol/L (98-107) Carbon Dioxide Level 30 mmol/L (21-32) 30 mmol/L (21-32) Anion Gap 7 (6-14) 7 (6-14) Blood Urea Nitrogen 12 mg/dL (8-26) 8 mg/dL (8-26) Creatinine 0.8 mg/dL (0.7-1.3) 0.8 mg/dL (0.7-1.3) Estimated GFR (Cockcroft-Gault) 96.7 96.7 BUN/Creatinine Ratio 15 (6-20) Glucose Level 110 mg/dL (70-99) 98 mg/dL (70-99) Calcium Level 8.7 mg/dL (8.5-10.1) 8.6 mg/dL (8.5-10.1) Total Bilirubin 0.9 mg/dL (0.2-1.0) Aspartate Amino Transf (AST/SGOT) 27 U/L (15-37) Alanine Aminotransferase (ALT/SGPT) 36 U/L (16-63) Alkaline Phosphatase 61 U/L (46-116) Total Protein 6.8 g/dL (6.4-8.2) Albumin 3.1 g/dL (3.4-5.0) Albumin/Globulin Ratio 0.8 (1.0-1.7) Laboratory Tests Test 02/05/17 11:40 02/06/17 05:35 White Blood Count 7.7 x10^3/uL (4.0-11.0) 6.2 x10^3/uL (4.0-11.0) Red Blood Count 3.89 x10^6/uL (4.30-5.70) 3.81 x10^6/uL (4.30-5.70) Hemoglobin 12.2 g/dL (13.0-17.5) 11.9 g/dL (13.0-17.5) Hematocrit 36.2 % (39.0-53.0) 34.8 % (39.0-53.0) Mean Corpuscular Volume 93 fL (79-100) 91 fL (79-100) Mean Corpuscular Hemoglobin 31 pg (25-35) 31 pg (25-35) Mean Corpuscular Hemoglobin Concent 34 g/dL (31-37) 34 g/dL (31-37) Red Cell Distribution Width 12.6 % (11.5-14.5) 12.8 % (11.5-14.5) Platelet Count 314 x10^3/uL (140-400) 304 x10^3/uL (140-400) Neutrophils (%) (Auto) 65 % (31-73) 56 % (31-73) Lymphocytes (%) (Auto) 22 % (24-48) 29 % (24-48) Monocytes (%) (Auto) 11 % (0-9) 11 % (0-9) Eosinophils (%) (Auto) 2 % (0-3) 3 % (0-3) Basophils (%) (Auto) 1 % (0-3) 1 % (0-3) Neutrophils # (Auto) 5.0 x10^3uL (1.8-7.7) 3.4 x10^3uL (1.8-7.7) Lymphocytes # (Auto) 1.7 x10^3/uL (1.0-4.8) 1.8 x10^3/uL (1.0-4.8) Monocytes # (Auto) 0.9 x10^3/uL (0.0-1.1) 0.7 x10^3/uL (0.0-1.1) Eosinophils # (Auto) 0.2 x10^3/uL (0.0-0.7) 0.2 x10^3/uL (0.0-0.7) Basophils # (Auto) 0.0 x10^3/uL (0.0-0.2) 0.0 x10^3/uL (0.0-0.2) Erythrocyte Sedimentation Rate 65 (0-15) Sodium Level 139 mmol/L (136-145) 142 mmol/L (136-145) Potassium Level 3.6 mmol/L (3.5-5.1) 3.5 mmol/L (3.5-5.1) Chloride Level 102 mmol/L (98-107) 105 mmol/L (98-107) Carbon Dioxide Level 30 mmol/L (21-32) 30 mmol/L (21-32) Anion Gap 7 (6-14) 7 (6-14) Blood Urea Nitrogen 12 mg/dL (8-26) 8 mg/dL (8-26) Creatinine 0.8 mg/dL (0.7-1.3) 0.8 mg/dL (0.7-1.3) Estimated GFR (Cockcroft-Gault) 96.7 96.7 BUN/Creatinine Ratio 15 (6-20) Glucose Level 110 mg/dL (70-99) 98 mg/dL (70-99) Calcium Level 8.7 mg/dL (8.5-10.1) 8.6 mg/dL (8.5-10.1) Total Bilirubin 0.9 mg/dL (0.2-1.0) Aspartate Amino Transf (AST/SGOT) 27 U/L (15-37) Alanine Aminotransferase (ALT/SGPT) 36 U/L (16-63) Alkaline Phosphatase 61 U/L (46-116) Total Protein 6.8 g/dL (6.4-8.2) Albumin 3.1 g/dL (3.4-5.0) Albumin/Globulin Ratio 0.8 (1.0-1.7) Microbiology 02/05/17 Gram Stain - Final, Complete Medications Current Medications Aspirin (Ecotrin) 81 mg DAILY PO Last administered on 02/06/17 08:50; Start at 13:00 Cetirizine HCl (ZyrTEC) 10 mg DAILY PO Last administered on 02/06/17 08:50; Start 02/05/17 at 12:00 Diltiazem HCl (Cardizem 24hr Cd) 240 mg DAILY PO Last administered on 08:50; Start 02/05/17 at 12:00 Docusate Sodium (Colace) 100 mg BID PO ; Start 02/05/17 at 12:00; Stop 02/05/17 at 16:16; Status DC Oxycodone HCl (OxyCONTIN) 10 mg BID PO Last administered on 02/06/17 08:51; Start 02/05/17 at 12:00 Paroxetine HCl (Paxil) 20 mg DAILY PO Last administered on 02/06/17 08:50; Start 02/05/17 at 12:00 Tamsulosin HCl (Flomax) 0.4 mg DAILY PO Last administered on 02/06/17 08:50; Start 02/05/17 at 12:00 Tizanidine HCl (Zanaflex) 4 mg PRN TID PRN PO MUSCLE SPASMS; Start 02/05/17 at 11:15 Atorvastatin Calcium (Lipitor) 80 mg QHS PO Last administered on 02/05/17 20: 38; Start 02/05/17 at 21:00 Oxycodone HCl (Roxicodone) 10 mg PRN Q6HRS PRN PO PAIN; Start 02/05/17 at 11:15 ; Stop 02/05/17 at 12:25; Status DC Oxycodone HCl (Roxicodone) 20 mg PRN Q6HRS PRN PO PAIN; Start 02/05/17 at 11:15 ; Stop 02/05/17 at 12:25; Status DC Acetaminophen (Tylenol) 650 mg PRN Q6HRS PRN PO MILD PAIN / TEMP; Start at 11:30; Stop 02/05/17 at 14:59; Status DC Al Hydroxide/Mg Hydroxide (Mylanta Plus Xs) 30 ml PRN Q3HRS PRN PO HEARTBURN / GAS; Start 02/05/17 at 11:30 Calcium Carbonate/ Glycine (Tums) 500 mg PRN Q3HRS PRN PO INDIGESTION Last administered on 02/05/17 20:42; Start 02/05/17 at 11:30 Diphenhydramine HCl (Benadryl) 25 mg PRN Q6HRS PRN PO ITCHING; Start 02/05/17 at 11:30 Diphenhydramine HCl (Benadryl) 25 mg PRN Q6HRS PRN IV ITCHING; Start 02/05/17 at 11:30 Zolpidem Tartrate (Ambien) 5 mg PRN QHS PRN PO INSOMNIA, MAY REPEAT IN 1HR Last administered on 02/05/17 20:38; Start 02/05/17 at 11:30 Sodium Chloride (Normal Saline Flush) 3 ml QSHIFT PRN IV AFTER MEDS AND BLOOD DRAWS; Start 02/05/17 at 11:30 Docusate Sodium (Colace) 100 mg BID PO ; Start 02/05/17 at 12:00; Stop 02/05/17 at 13:42; Status DC Magnesium Hydroxide (Milk Of Magnesia) 2,400 mg PRN Q12HR PRN PO CONSTIPATION; Start 02/05/17 at 11:30 Ondansetron HCl (Zofran) 4 mg PRN Q6HRS PRN IV NAUESA, 1ST CHOICE; Start at 11:30 Oxycodone HCl (Roxicodone) 10 mg PRN Q6HRS PRN PO BREAKTHROUGH PAIN Last administered on 02/05/17 12:30; Start 02/05/17 at 12:30; Stop 02/05/17 at 16:04 ; Status DC Oxycodone HCl (Roxicodone) 20 mg PRN Q6HRS PRN PO BREAKTHROUGH PAIN; Start at 12:30; Stop 02/05/17 at 16:04; Status DC Vancomycin HCl (Vanco Per Pharmacy) 1 each PRN DAILY PRN MC SEE COMMENTS Last administered on 02/05/17 18:36; Start 02/05/17 at 13:45 Piperacillin Sod/ Tazobactam Sod 3.375 gm/Sodium Chloride 50 ml @ 100 mls/hr Q6HRS IV Last administered on 02/06/17 05:09; Start 02/05/17 at 16:00 Vancomycin HCl 2 gm/Sodium Chloride 500 ml @ 250 mls/hr ONCE ONCE IV Last administered on 02/05/17 14:45; Start 02/05/17 at 14:00; Stop 02/05/17 at 15:59 ; Status DC Acetaminophen (Tylenol) 650 mg PRN Q4HRS PRN PO PAIN; Start 02/05/17 at 15:00 Nitroglycerin (Nitrostat) 0.4 mg PRN Q5MIN PRN SL CHEST PAIN; Start 02/05/17 at 15:00 Oxycodone HCl (Roxicodone) 10 mg PRN Q4HRS PRN PO BREAKTHROUGH PAIN Last administered on 02/05/17 19:25; Start 02/05/17 at 16:15 Oxycodone HCl (Roxicodone) 20 mg PRN Q4HRS PRN PO BREAKTHROUGH PAIN Last administered on 02/06/17 05:13; Start 02/05/17 at 16:15 Senna/Docusate Sodium (Senna Plus) 2 tab QHS PO Last administered on 02/05/17 20:38; Start 02/05/17 at 21:00 Polyethylene Glycol (miraLAX PACKET) 17 gm DAILY PO Last administered on 08:49; Start 02/06/17 at 09:00 Vancomycin HCl 1.25 gm/Sodium Chloride 250 ml @ 167 mls/hr Q12H IV Last administered on 02/06/17t 02:55; Start 02/06/17 at 03:00 Vancomycin HCl 1 each 1X ONCE MC ; Start 02/07/17 at 02:30; Stop 02/07/17 at 02 :31 Active Scripts Active Colace (Docusate Sodium) 100 Mg Capsule 100 Mg PO BID Reported Cetirizine Hcl 10 Mg Tablet 1 Tab PO DAILY Paroxetine Hcl 20 Mg Tablet 20 Mg PO DAILY Aspir 81 (Aspirin) 81 Mg Tablet.dr 1 Tab PO DAILY Tizanidine Hcl 4 Mg Tablet 4 Mg PO TID PRN Oxycontin (Oxycodone HCl) 10 Mg Tab.er.12h 10 Mg PO BID Oxycodone Hcl 10 Mg Tablet 1 Tab PO TID Tamsulosin Hcl 0.4 Mg Cap.er.24h 1 Cap PO DAILY Cardizem Cd (Diltiazem Hcl) 240 Mg Cap.er.24h 240 Mg PO DAILY Atorvastatin Calcium 80 Mg Tablet 80 Mg PO DAILY Vitals/I & O Vital Sign - Last 24 Hours 02/05/17 02/05/17 02/05/17 02/05/17 11:35 11:45 12:30 15:00 Temp 98.5 97.9 98.5 97.9 Pulse 57 58 Resp 18 16 B/P (MAP) 129/71 (90) 133/75 (94) Pulse Ox 97 94 O2 Delivery Room Air Room Air Room Air Room Air 02/05/17 02/05/17 02/05/17 02/05/17 16:26 19:25 19:35 19:52 Temp 98.6 98.6 Pulse 66 Resp 18 B/P (MAP) 136/71 (92) Pulse Ox 94 95 O2 Delivery Room Air Room Air Room Air Room Air 02/05/17 02/05/17 02/05/17 02/05/17 20:25 20:39 20:46 23:40 Temp 99.1 99.1 Pulse 55 Resp 16 B/P (MAP) 126/74 (91) Pulse Ox 95 95 95 93 O2 Delivery Room Air Room Air Room Air Room Air 02/06/17 02/06/17 02/06/17 02/06/17 00:39 01:08 03:41 05:13 Temp 98.6 98.6 Pulse 61 Resp 16 B/P (MAP) 127/73 (91) Pulse Ox 93 93 93 93 O2 Delivery Room Air Room Air Room Air Room Air 02/06/17 02/06/17 02/06/17 02/06/17 06:17 07:20 07:47 08:50 Temp 98.5 98.5 Pulse 57 57 Resp 18 B/P (MAP) 135/71 (92) 135/71 Pulse Ox 93 94 O2 Delivery Room Air Room Air Room Air 02/06/17 08:51 O2 Delivery Room Air NANY WANG MD Feb 06, 2017 09:54
[2017-02-06] MEDS ORDERED: POTASSIUM CHLORIDE 20 MEQ TABLET.ER. PO ONE (10:30)
[2017-02-06 11:00] VITALS: BP 137/86
--- NOTE | 2017-02-06 13:32 | PDOC ---
PROGRESS NOTES Subjective Subjective patient seen at [address] Olsen (covering for Dr. Gustafson) ambulating in room feels good, comfortable, less drainage from incision Objective Objective Vital Signs Date Time Temp Pulse Resp B/P (MAP) Pulse Ox O2 Delivery O2 Flow Rate FiO2 02/06/17 11:00 98.2 63 18 137/86 (103) 96 Room Air 98.2 Intake and Output 02/07/17 07:00 # Bowel Movements 1 Physical Exam General: Alert, Oriented X3, Cooperative MUSCULOSKELETAL: Other (KITCHEN) Neuro: Normal speech, Other (neuro intact) Skin: Other (Dressing changed, less yellow drainage and less erythema today) Plan Plan of Care lumbar CT reviewed- fluid collection appears superficial to fascia labs/ culture noted D/W Dr. Gustafson- integrity of instrumentation is quite important to construct stability and would be most optimal to avoid removal if possible Continue antibiotics per ID Will continue to monitor wound closely and any associated symptoms for now Comment Review of Relevant I have reviewed the following items abelardo (where applicable) has been applied. Labs Laboratory Tests Test 02/05/17 11:40 02/06/17 05:35 White Blood Count 7.7 x10^3/uL (4.0-11.0) 6.2 x10^3/uL (4.0-11.0) Red Blood Count 3.89 x10^6/uL (4.30-5.70) 3.81 x10^6/uL (4.30-5.70) Hemoglobin 12.2 g/dL (13.0-17.5) 11.9 g/dL (13.0-17.5) Hematocrit 36.2 % (39.0-53.0) 34.8 % (39.0-53.0) Mean Corpuscular Volume 93 fL (79-100) 91 fL (79-100) Mean Corpuscular Hemoglobin 31 pg (25-35) 31 pg (25-35) Mean Corpuscular Hemoglobin Concent 34 g/dL (31-37) 34 g/dL (31-37) Red Cell Distribution Width 12.6 % (11.5-14.5) 12.8 % (11.5-14.5) Platelet Count 314 x10^3/uL (140-400) 304 x10^3/uL (140-400) Neutrophils (%) (Auto) 65 % (31-73) 56 % (31-73) Lymphocytes (%) (Auto) 22 % (24-48) 29 % (24-48) Monocytes (%) (Auto) 11 % (0-9) 11 % (0-9) Eosinophils (%) (Auto) 2 % (0-3) 3 % (0-3) Basophils (%) (Auto) 1 % (0-3) 1 % (0-3) Neutrophils # (Auto) 5.0 x10^3uL (1.8-7.7) 3.4 x10^3uL (1.8-7.7) Lymphocytes # (Auto) 1.7 x10^3/uL (1.0-4.8) 1.8 x10^3/uL (1.0-4.8) Monocytes # (Auto) 0.9 x10^3/uL (0.0-1.1) 0.7 x10^3/uL (0.0-1.1) Eosinophils # (Auto) 0.2 x10^3/uL (0.0-0.7) 0.2 x10^3/uL (0.0-0.7) Basophils # (Auto) 0.0 x10^3/uL (0.0-0.2) 0.0 x10^3/uL (0.0-0.2) Erythrocyte Sedimentation Rate 65 (0-15) Sodium Level 139 mmol/L (136-145) 142 mmol/L (136-145) Potassium Level 3.6 mmol/L (3.5-5.1) 3.5 mmol/L (3.5-5.1) Chloride Level 102 mmol/L (98-107) 105 mmol/L (98-107) Carbon Dioxide Level 30 mmol/L (21-32) 30 mmol/L (21-32) Anion Gap 7 (6-14) 7 (6-14) Blood Urea Nitrogen 12 mg/dL (8-26) 8 mg/dL (8-26) Creatinine 0.8 mg/dL (0.7-1.3) 0.8 mg/dL (0.7-1.3) Estimated GFR (Cockcroft-Gault) 96.7 96.7 BUN/Creatinine Ratio 15 (6-20) Glucose Level 110 mg/dL (70-99) 98 mg/dL (70-99) Calcium Level 8.7 mg/dL (8.5-10.1) 8.6 mg/dL (8.5-10.1) Total Bilirubin 0.9 mg/dL (0.2-1.0) Aspartate Amino Transf (AST/SGOT) 27 U/L (15-37) Alanine Aminotransferase (ALT/SGPT) 36 U/L (16-63) Alkaline Phosphatase 61 U/L (46-116) Total Protein 6.8 g/dL (6.4-8.2) Albumin 3.1 g/dL (3.4-5.0) Albumin/Globulin Ratio 0.8 (1.0-1.7) Laboratory Tests Test 02/06/17 05:35 White Blood Count 6.2 x10^3/uL (4.0-11.0) Red Blood Count 3.81 x10^6/uL (4.30-5.70) Hemoglobin 11.9 g/dL (13.0-17.5) Hematocrit 34.8 % (39.0-53.0) Mean Corpuscular Volume 91 fL (79-100) Mean Corpuscular Hemoglobin 31 pg (25-35) Mean Corpuscular Hemoglobin Concent 34 g/dL (31-37) Red Cell Distribution Width 12.8 % (11.5-14.5) Platelet Count 304 x10^3/uL (140-400) Neutrophils (%) (Auto) 56 % (31-73) Lymphocytes (%) (Auto) 29 % (24-48) Monocytes (%) (Auto) 11 % (0-9) Eosinophils (%) (Auto) 3 % (0-3) Basophils (%) (Auto) 1 % (0-3) Neutrophils # (Auto) 3.4 x10^3uL (1.8-7.7) Lymphocytes # (Auto) 1.8 x10^3/uL (1.0-4.8) Monocytes # (Auto) 0.7 x10^3/uL (0.0-1.1) Eosinophils # (Auto) 0.2 x10^3/uL (0.0-0.7) Basophils # (Auto) 0.0 x10^3/uL (0.0-0.2) Sodium Level 142 mmol/L (136-145) Potassium Level 3.5 mmol/L (3.5-5.1) Chloride Level 105 mmol/L (98-107) Carbon Dioxide Level 30 mmol/L (21-32) Anion Gap 7 (6-14) Blood Urea Nitrogen 8 mg/dL (8-26) Creatinine 0.8 mg/dL (0.7-1.3) Estimated GFR (Cockcroft-Gault) 96.7 Glucose Level 98 mg/dL (70-99) Calcium Level 8.6 mg/dL (8.5-10.1) Microbiology 02/05/17 Gram Stain - Final, Complete Medications Current Medications Aspirin (Ecotrin) 81 mg DAILY PO Last administered on 02/06/17 08:50; Start at 13:00 Cetirizine HCl (ZyrTEC) 10 mg DAILY PO Last administered on 02/06/17 08:50; Start 02/05/17 at 12:00 Diltiazem HCl (Cardizem 24hr Cd) 240 mg DAILY PO Last administered on 08:50; Start 02/05/17 at 12:00 Docusate Sodium (Colace) 100 mg BID PO ; Start 02/05/17 at 12:00; Stop 02/05/17 at 16:16; Status DC Oxycodone HCl (OxyCONTIN) 10 mg BID PO Last administered on 02/06/17 08:51; Start 02/05/17 at 12:00 Paroxetine HCl (Paxil) 20 mg DAILY PO Last administered on 02/06/17 08:50; Start 02/05/17 at 12:00 Tamsulosin HCl (Flomax) 0.4 mg DAILY PO Last administered on 02/06/17 08:50; Start 02/05/17 at 12:00 Tizanidine HCl (Zanaflex) 4 mg PRN TID PRN PO MUSCLE SPASMS; Start 02/05/17 at 11:15 Atorvastatin Calcium (Lipitor) 80 mg QHS PO Last administered on 02/05/17 20: 38; Start 02/05/17 at 21:00 Oxycodone HCl (Roxicodone) 10 mg PRN Q6HRS PRN PO PAIN; Start 02/05/17 at 11:15 ; Stop 02/05/17 at 12:25; Status DC Oxycodone HCl (Roxicodone) 20 mg PRN Q6HRS PRN PO PAIN; Start 02/05/17 at 11:15 ; Stop 02/05/17 at 12:25; Status DC Acetaminophen (Tylenol) 650 mg PRN Q6HRS PRN PO MILD PAIN / TEMP; Start at 11:30; Stop 02/05/17 at 14:59; Status DC Al Hydroxide/Mg Hydroxide (Mylanta Plus Xs) 30 ml PRN Q3HRS PRN PO HEARTBURN / GAS; Start 02/05/17 at 11:30 Calcium Carbonate/ Glycine (Tums) 500 mg PRN Q3HRS PRN PO INDIGESTION Last administered on 02/05/17t 20:42; Start 02/05/17 at 11:30 Diphenhydramine HCl (Benadryl) 25 mg PRN Q6HRS PRN PO ITCHING; Start 02/05/17 at 11:30 Diphenhydramine HCl (Benadryl) 25 mg PRN Q6HRS PRN IV ITCHING; Start 02/05/17 at 11:30 Zolpidem Tartrate (Ambien) 5 mg PRN QHS PRN PO INSOMNIA, MAY REPEAT IN 1HR Last administered on 02/05/17t 20:38; Start 02/05/17 at 11:30 Sodium Chloride (Normal Saline Flush) 3 ml QSHIFT PRN IV AFTER MEDS AND BLOOD DRAWS; Start 02/05/17 at 11:30 Docusate Sodium (Colace) 100 mg BID PO ; Start 02/05/17 at 12:00; Stop 02/05/17 at 13:42; Status DC Magnesium Hydroxide (Milk Of Magnesia) 2,400 mg PRN Q12HR PRN PO CONSTIPATION; Start 02/05/17 at 11:30 Ondansetron HCl (Zofran) 4 mg PRN Q6HRS PRN IV NAUESA, 1ST CHOICE; Start at 11:30 Oxycodone HCl (Roxicodone) 10 mg PRN Q6HRS PRN PO BREAKTHROUGH PAIN Last administered on 02/05/17t 12:30; Start 02/05/17 at 12:30; Stop 02/05/17 at 16:04 ; Status DC Oxycodone HCl (Roxicodone) 20 mg PRN Q6HRS PRN PO BREAKTHROUGH PAIN; Start at 12:30; Stop 02/05/17 at 16:04; Status DC Vancomycin HCl (Vanco Per Pharmacy) 1 each PRN DAILY PRN MC SEE COMMENTS Last administered on 02/05/17 18:36; Start 02/05/17 at 13:45 Piperacillin Sod/ Tazobactam Sod 3.375 gm/Sodium Chloride 50 ml @ 100 mls/hr Q6HRS IV Last administered on 02/06/17 12:15; Start 02/05/17 at 16:00 Vancomycin HCl 2 gm/Sodium Chloride 500 ml @ 250 mls/hr ONCE ONCE IV Last administered on 02/05/17 14:45; Start 02/05/17 at 14:00; Stop 02/05/17 at 15:59 ; Status DC Acetaminophen (Tylenol) 650 mg PRN Q4HRS PRN PO PAIN; Start 02/05/17 at 15:00 Nitroglycerin (Nitrostat) 0.4 mg PRN Q5MIN PRN SL CHEST PAIN; Start 02/05/17 at 15:00 Oxycodone HCl (Roxicodone) 10 mg PRN Q4HRS PRN PO BREAKTHROUGH PAIN Last administered on 02/05/17 19:25; Start 02/05/17 at 16:15 Oxycodone HCl (Roxicodone) 20 mg PRN Q4HRS PRN PO BREAKTHROUGH PAIN Last administered on 02/06/17 09:56; Start 02/05/17 at 16:15 Senna/Docusate Sodium (Senna Plus) 2 tab QHS PO Last administered on 02/05/17 20:38; Start 02/05/17 at 21:00 Polyethylene Glycol (miraLAX PACKET) 17 gm DAILY PO Last administered on 08:49; Start 02/06/17 at 09:00 Vancomycin HCl 1.25 gm/Sodium Chloride 250 ml @ 167 mls/hr Q12H IV Last administered on 02/06/17 02:55; Start 02/06/17 at 03:00 Vancomycin HCl 1 each 1X ONCE MC ; Start 02/07/17 at 02:30; Stop 02/07/17 at 02 :31 Potassium Chloride (Klor-Con) 20 meq 1X ONCE PO Last administered on t 10:14; Start 02/06/17 at 10:30; Stop 02/06/17 at 10:31; Status DC Active Scripts Active Colace (Docusate Sodium) 100 Mg Capsule 100 Mg PO BID Reported Cetirizine Hcl 10 Mg Tablet 1 Tab PO DAILY Paroxetine Hcl 20 Mg Tablet 20 Mg PO DAILY Aspir 81 (Aspirin) 81 Mg Tablet.dr 1 Tab PO DAILY Tizanidine Hcl 4 Mg Tablet 4 Mg PO TID PRN Oxycontin (Oxycodone HCl) 10 Mg Tab.er.12h 10 Mg PO BID Oxycodone Hcl 10 Mg Tablet 1 Tab PO TID Tamsulosin Hcl 0.4 Mg Cap.er.24h 1 Cap PO DAILY Cardizem Cd (Diltiazem Hcl) 240 Mg Cap.er.24h 240 Mg PO DAILY Atorvastatin Calcium 80 Mg Tablet 80 Mg PO DAILY Vitals/I & O Vital Sign - Last 24 Hours 02/05/17 02/05/17 02/05/17 02/05/17 15:00 16:26 19:25 19:35 Temp 97.9 98.6 97.9 98.6 Pulse 58 66 Resp 16 18 B/P (MAP) 133/75 (94) 136/71 (92) Pulse Ox 94 94 95 O2 Delivery Room Air Room Air Room Air Room Air 02/05/17 02/05/17 02/05/17 02/05/17 19:52 20:25 20:39 20:46 Pulse Ox 95 95 95 O2 Delivery Room Air Room Air Room Air Room Air 02/05/17 02/06/17 02/06/17 02/06/17 23:40 00:39 01:08 03:41 Temp 99.1 98.6 99.1 98.6 Pulse 55 61 Resp 16 16 B/P (MAP) 126/74 (91) 127/73 (91) Pulse Ox 93 93 93 93 O2 Delivery Room Air Room Air Room Air Room Air 02/06/17 02/06/17 02/06/17 02/06/17 05:13 06:17 07:20 07:47 Temp 98.5 98.5 Pulse 57 Resp 18 B/P (MAP) 135/71 (92) Pulse Ox 93 93 94 O2 Delivery Room Air Room Air Room Air Room Air 02/06/17 02/06/17 02/06/17 02/06/17 08:50 08:51 09:56 11:00 Temp 98.2 98.2 Pulse 57 63 Resp 18 B/P (MAP) 135/71 137/86 (103) Pulse Ox 96 O2 Delivery Room Air Room Air Room Air KATLYN FUNG APRN Feb 06, 2017 13:31
[2017-02-06] MEDS: VANCOMYCIN PER PHARMACY MC PRN (14:08)
[2017-02-06 15:00] VITALS: BP 128/74
[2017-02-06 19:00] VITALS: BP 148/67
[2017-02-06] MEDS: SENNOSIDES/DOCUSATE 8.6/50MG TABLET. PO SCH (21:01)
[2017-02-06] MEDS: ATORVASTATIN CALCIUM 40 MG TABLET. PO SCH (21:02)
[2017-02-06 23:25] VITALS: BP 133/78
[2017-02-07] MEDS: PIPERACILLIN/TAZOBACTAM 3.375 GM in IV NORMAL SALINE 50ML 50 ML IV SCH ×5 (00:08→23:40)
[2017-02-07 03:24] VITALS: BP 124/66
[2017-02-07] MEDS: VANCOMYCIN 1.25 GM in IV NORMAL SALINE 250ML 250 ML IV SCH ×3 (03:58→20:10)
[2017-02-07] MEDS: oxyCODONE IR 5 MG TABLET PO PRN ×6 (04:00→23:40)
[2017-02-07] MEDS: VANCOMYCIN PER PHARMACY MC PRN ×2 (04:02→15:51)
[2017-02-07 07:00] VITALS: BP 141/73
[2017-02-07] MEDS: TAMSULOSIN 0.4 MG CAP.ER.24H. PO SCH (08:20)
[2017-02-07] MEDS: ASPIRIN ENTERIC COATED 81 MG TABLET.DR. PO SCH (08:20)
[2017-02-07] MEDS: PARoxetine 20 MG TABLET PO SCH (08:20)
[2017-02-07] MEDS: CETIRIZINE HCL 10 MG TABLET. PO SCH (08:20)
[2017-02-07] MEDS: POLYETHYLENE GLYCOL 3350 17 GM PACKET. PO SCH (08:20)
[2017-02-07] MEDS: oxyCODONE ER 10 MG TAB.ER.12H PO SCH ×2 (08:21→20:10)
--- NOTE | 2017-02-07 08:39 | PDOC ---
Infectious Disease Note Subjective Subjective pt feeling good ROS ROS GEN: Denies fevers, chills, sweats HEENT: Denies blurred vision, sore throat CV: Denies chest pain RESP: Denies shortness of air, cough GI: Denies n/v/d NEURO: Denies confusion, dizziness MSK: Denies weakness, joint pain/swelling Vital Sign Vital Signs Vital Signs Date Time Temp Pulse Resp B/P (MAP) Pulse Ox O2 Delivery O2 Flow Rate FiO2 02/07/17 08:22 64 141/73 02/07/17 08:21 Room Air 02/07/17 05:00 16 02/07/17 03:24 97.9 93 97.9 Physical Exam PHYSICAL EXAM GENERAL: NAD, Alert HEENT: PERRL, OC/OP NECK: Supple, no JVD, no LN LUNGS: Clear HEART: S1S2, no gallop, no murmur ABD: Soft, NT, no organomegaly, no rebound EXT: No edema, no cyanosis,, back drainage less 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
[2017-02-07] MEDS ORDERED: 0.9 % SODIUM CHLORIDE 10 ML DISP.SYRIN. IV PRN ×3 (08:45)
[2017-02-07 11:00] VITALS: BP 145/81
[2017-02-07 15:00] VITALS: BP 127/76
--- NOTE | 2017-02-07 16:26 | PDOC ---
PROGRESS NOTES Subjective Subjective wound cultures grew MRSA. . feels okay. seen earlier today. lab reviewed. Objective Objective Vital Signs Date Time Temp Pulse Resp B/P (MAP) Pulse Ox O2 Delivery O2 Flow Rate FiO2 02/07/17 16:11 Room Air 02/07/17 11:00 97.7 62 20 145/81 (102) 92 97.7 Intake and Output 02/08/17 07:00 Intake Total 540 ml Output Total 600 ml Balance -60 ml Intake Oral 540 ml Output Urine Total 600 ml Physical Exam Abdomen: Soft Heart: Regular rate, Normal S1, Normal S2 Extremities: No edema General: Alert HEENT: Atraumatic Lungs: Clear to auscultation Neuro: Normal speech Psych/Mental Status: Mental status NL Skin: No rashes, Other (redness lumbar wound) Assessment Assessment 1. MRSA Lumbar wound infection 2. Recent lumbar L5-S1 hemilaminotomy with L5-S1 fusion. 3. Coronary artery disease. 4. History of paroxysmal supraventricular tachycardia. 5. Chronic pain. 6. Lumbar spondylosis. 7. Osteoarthritis with a previous right total knee arthroplasty. 8. Hyperlipidemia. 9. Coronary artery disease with previous coronary artery angioplasty and Plan Plan of Care continue iv vancomycin and zosyn continue analgesics Comment Review of Relevant I have reviewed the following items abelardo (where applicable) has been applied. Labs Laboratory Tests Test 02/06/17 05:35 02/07/17 02:40 White Blood Count 6.2 x10^3/uL (4.0-11.0) Red Blood Count 3.81 x10^6/uL (4.30-5.70) Hemoglobin 11.9 g/dL (13.0-17.5) Hematocrit 34.8 % (39.0-53.0) Mean Corpuscular Volume 91 fL (79-100) Mean Corpuscular Hemoglobin 31 pg (25-35) Mean Corpuscular Hemoglobin Concent 34 g/dL (31-37) Red Cell Distribution Width 12.8 % (11.5-14.5) Platelet Count 304 x10^3/uL (140-400) Neutrophils (%) (Auto) 56 % (31-73) Lymphocytes (%) (Auto) 29 % (24-48) Monocytes (%) (Auto) 11 % (0-9) Eosinophils (%) (Auto) 3 % (0-3) Basophils (%) (Auto) 1 % (0-3) Neutrophils # (Auto) 3.4 x10^3uL (1.8-7.7) Lymphocytes # (Auto) 1.8 x10^3/uL (1.0-4.8) Monocytes # (Auto) 0.7 x10^3/uL (0.0-1.1) Eosinophils # (Auto) 0.2 x10^3/uL (0.0-0.7) Basophils # (Auto) 0.0 x10^3/uL (0.0-0.2) Sodium Level 142 mmol/L (136-145) Potassium Level 3.5 mmol/L (3.5-5.1) Chloride Level 105 mmol/L (98-107) Carbon Dioxide Level 30 mmol/L (21-32) Anion Gap 7 (6-14) Blood Urea Nitrogen 8 mg/dL (8-26) Creatinine 0.8 mg/dL (0.7-1.3) Estimated GFR (Cockcroft-Gault) 96.7 Glucose Level 98 mg/dL (70-99) Calcium Level 8.6 mg/dL (8.5-10.1) Vancomycin Level Trough 8.4 mcg/mL (10.0-20.0) Vancomycin Last Dose Date Vancomycin Last Dose Time Laboratory Tests Test 02/07/17 02:40 Vancomycin Level Trough 8.4 mcg/mL (10.0-20.0) Vancomycin Last Dose Date Vancomycin Last Dose Time Microbiology 02/05/17 Gram Stain - Final, Complete Medications Current Medications Aspirin (Ecotrin) 81 mg DAILY PO Last administered on 02/07/17 08:20; Start at 13:00 Cetirizine HCl (ZyrTEC) 10 mg DAILY PO Last administered on 02/07/17 08:20; Start 02/05/17 at 12:00 Diltiazem HCl (Cardizem 24hr Cd) 240 mg DAILY PO Last administered on 08:22; Start 02/05/17 at 12:00 Docusate Sodium (Colace) 100 mg BID PO ; Start 02/05/17 at 12:00; Stop 02/05/17 at 16:16; Status DC Oxycodone HCl (OxyCONTIN) 10 mg BID PO Last administered on 02/07/17 08:21; Start 02/05/17 at 12:00 Paroxetine HCl (Paxil) 20 mg DAILY PO Last administered on 02/07/17 08:20; Start 02/05/17 at 12:00 Tamsulosin HCl (Flomax) 0.4 mg DAILY PO Last administered on 02/07/17 08:20; Start 02/05/17 at 12:00 Tizanidine HCl (Zanaflex) 4 mg PRN TID PRN PO MUSCLE SPASMS; Start 02/05/17 at 11:15 Atorvastatin Calcium (Lipitor) 80 mg QHS PO Last administered on 02/06/17 21: 02; Start 02/05/17 at 21:00 Oxycodone HCl (Roxicodone) 10 mg PRN Q6HRS PRN PO PAIN; Start 02/05/17 at 11:15 ; Stop 02/05/17 at 12:25; Status DC Oxycodone HCl (Roxicodone) 20 mg PRN Q6HRS PRN PO PAIN; Start 02/05/17 at 11:15 ; Stop 02/05/17 at 12:25; Status DC Acetaminophen (Tylenol) 650 mg PRN Q6HRS PRN PO MILD PAIN / TEMP; Start at 11:30; Stop 02/05/17 at 14:59; Status DC Al Hydroxide/Mg Hydroxide (Mylanta Plus Xs) 30 ml PRN Q3HRS PRN PO HEARTBURN / GAS; Start 02/05/17 at 11:30 Calcium Carbonate/ Glycine (Tums) 500 mg PRN Q3HRS PRN PO INDIGESTION Last administered on 02/05/17 20:42; Start 02/05/17 at 11:30 Diphenhydramine HCl (Benadryl) 25 mg PRN Q6HRS PRN PO ITCHING; Start 02/05/17 at 11:30 Diphenhydramine HCl (Benadryl) 25 mg PRN Q6HRS PRN IV ITCHING; Start 02/05/17 at 11:30 Zolpidem Tartrate (Ambien) 5 mg PRN QHS PRN PO INSOMNIA, MAY REPEAT IN 1HR Last administered on 02/05/17 20:38; Start 02/05/17 at 11:30 Sodium Chloride (Normal Saline Flush) 3 ml QSHIFT PRN IV AFTER MEDS AND BLOOD DRAWS; Start 02/05/17 at 11:30 Docusate Sodium (Colace) 100 mg BID PO ; Start 02/05/17 at 12:00; Stop 02/05/17 at 13:42; Status DC Magnesium Hydroxide (Milk Of Magnesia) 2,400 mg PRN Q12HR PRN PO CONSTIPATION; Start 02/05/17 at 11:30 Ondansetron HCl (Zofran) 4 mg PRN Q6HRS PRN IV NAUESA, 1ST CHOICE; Start at 11:30 Oxycodone HCl (Roxicodone) 10 mg PRN Q6HRS PRN PO BREAKTHROUGH PAIN Last administered on 02/05/17 12:30; Start 02/05/17 at 12:30; Stop 02/05/17 at 16:04 ; Status DC Oxycodone HCl (Roxicodone) 20 mg PRN Q6HRS PRN PO BREAKTHROUGH PAIN; Start at 12:30; Stop 02/05/17 at 16:04; Status DC Vancomycin HCl (Vanco Per Pharmacy) 1 each PRN DAILY PRN MC SEE COMMENTS Last administered on 02/07/17 15:51; Start 02/05/17 at 13:45 Piperacillin Sod/ Tazobactam Sod 3.375 gm/Sodium Chloride 50 ml @ 100 mls/hr Q6HRS IV Last administered on 02/07/17 12:06; Start 02/05/17 at 16:00 Vancomycin HCl 2 gm/Sodium Chloride 500 ml @ 250 mls/hr ONCE ONCE IV Last administered on 02/05/17 14:45; Start 02/05/17 at 14:00; Stop 02/05/17 at 15:59 ; Status DC Acetaminophen (Tylenol) 650 mg PRN Q4HRS PRN PO PAIN; Start 02/05/17 at 15:00 Nitroglycerin (Nitrostat) 0.4 mg PRN Q5MIN PRN SL CHEST PAIN; Start 02/05/17 at 15:00 Oxycodone HCl (Roxicodone) 10 mg PRN Q4HRS PRN PO BREAKTHROUGH PAIN Last administered on 02/05/17 19:25; Start 02/05/17 at 16:15 Oxycodone HCl (Roxicodone) 20 mg PRN Q4HRS PRN PO BREAKTHROUGH PAIN Last administered on 02/07/17 16:11; Start 02/05/17 at 16:15 Senna/Docusate Sodium (Senna Plus) 2 tab QHS PO Last administered on 02/06/17 21:01; Start 02/05/17 at 21:00 Polyethylene Glycol (miraLAX PACKET) 17 gm DAILY PO Last administered on 08:20; Start 02/06/17 at 09:00 Vancomycin HCl 1.25 gm/Sodium Chloride 250 ml @ 167 mls/hr Q12H IV Last administered on 02/06/17 15:26; Start 02/06/17 at 03:00; Stop 02/07/17 at 03:37 ; Status DC Vancomycin HCl 1 each 1X ONCE MC Last administered on 02/07/17 02:48; Start 02/07/17 at 02:30; Stop 02/07/17 at 02:31; Status DC Potassium Chloride (Klor-Con) 20 meq 1X ONCE PO Last administered on 10:14; Start 02/06/17 at 10:30; Stop 02/06/17 at 10:31; Status DC Vancomycin HCl 1.25 gm/Sodium Chloride 250 ml @ 167 mls/hr Q8H IV Last administered on 02/07/17 13:14; Start 02/07/17 at 04:00 Vancomycin HCl 1 each 1X ONCE MC ; Start 02/08/17 at 03:30; Stop 02/08/17 at 03 :31 Sodium Chloride (Normal Saline Flush) 10 ml QSHIFT PRN IV AFTER MEDS AND BLOOD DRAWS; Start 02/07/17 at 08:45 Sodium Chloride (Normal Saline Flush) 10 ml PRN Q5MIN PRN IV AFTER MEDS AND BLOOD DRAWS; Start 02/07/17 at 08:45 Sodium Chloride (Normal Saline Flush) 20 ml PRN Q5MIN PRN IV AFTER MEDS AND BLOOD DRAWS; Start 02/07/17 at 08:45 Active Scripts Active Colace (Docusate Sodium) 100 Mg Capsule 100 Mg PO BID Reported Cetirizine Hcl 10 Mg Tablet 1 Tab PO DAILY Paroxetine Hcl 20 Mg Tablet 20 Mg PO DAILY Aspir 81 (Aspirin) 81 Mg Tablet. 1 Tab PO DAILY Tizanidine Hcl 4 Mg Tablet 4 Mg PO TID PRN Oxycontin (Oxycodone HCl) 10 Mg Tab.er.12h 10 Mg PO BID Oxycodone Hcl 10 Mg Tablet 1 Tab PO TID Tamsulosin Hcl 0.4 Mg Cap.er.24h 1 Cap PO DAILY Cardizem Cd (Diltiazem Hcl) 240 Mg Cap.er.24h 240 Mg PO DAILY Atorvastatin Calcium 80 Mg Tablet 80 Mg PO DAILY Vitals/I & O Vital Sign - Last 24 Hours 02/06/17 02/06/17 02/06/17 02/06/17 18:25 19:00 20:00 21:02 Temp 98.8 98.8 Pulse 56 Resp 18 16 B/P (MAP) 148/67 (94) Pulse Ox 92 O2 Delivery Room Air Room Air Room Air Room Air 02/06/17 02/06/17 02/07/17 02/07/17 22:23 23:25 01:02 03:24 Temp 97.9 97.9 97.9 97.9 Pulse 57 52 Resp 16 18 16 18 B/P (MAP) 133/78 (96) 124/66 (85) Pulse Ox 93 93 O2 Delivery Room Air Room Air Room Air 02/07/17 02/07/17 02/07/17 02/07/17 04:00 05:00 07:00 07:15 Temp 96.8 96.8 Pulse 55 Resp 16 16 20 B/P (MAP) 141/73 (95) Pulse Ox 93 O2 Delivery Room Air Room Air Room Air 02/07/17 02/07/17 02/07/17 02/07/17 08:21 08:21 08:22 11:00 Temp 97.7 97.7 Pulse 64 62 Resp 20 B/P (MAP) 141/73 145/81 (102) Pulse Ox 92 O2 Delivery Room Air Room Air Room Air 02/07/17 02/07/17 02/07/17 02/07/17 12:10 13:15 13:15 16:11 O2 Delivery Room Air Room Air Room Air Room Air Intake and Output 02/07/17 02/07/17 02/08/17 15:00 23:00 07:00 Intake Total 540 ml Output Total 600 ml Balance -60 ml NANY WANG MD Feb 07, 2017 16:26
[2017-02-07] MEDS ORDERED: POTASSIUM CHLORIDE 20 MEQ TABLET.ER. PO ONE (16:30)
[2017-02-07 19:00] VITALS: BP 123/75
[2017-02-07] MEDS: SENNOSIDES/DOCUSATE 8.6/50MG TABLET. PO SCH (20:10)
[2017-02-07] MEDS: ATORVASTATIN CALCIUM 40 MG TABLET. PO SCH (20:10)
[2017-02-07 23:00] VITALS: BP 133/77
[2017-02-08 03:00] VITALS: BP 127/69
[2017-02-08] MEDS: oxyCODONE IR 5 MG TABLET PO PRN ×3 (04:16→13:22)
[2017-02-08] MEDS: VANCOMYCIN 1.25 GM in IV NORMAL SALINE 250ML 250 ML IV SCH (04:16)
[2017-02-08] MEDS: VANCOMYCIN PER PHARMACY MC PRN (04:59)
[2017-02-08] MEDS: PIPERACILLIN/TAZOBACTAM 3.375 GM in IV NORMAL SALINE 50ML 50 ML IV SCH (05:56)
[2017-02-08 07:00] VITALS: BP 121/66
[2017-02-08] MEDS: TAMSULOSIN 0.4 MG CAP.ER.24H. PO SCH (08:18)
[2017-02-08] MEDS: ASPIRIN ENTERIC COATED 81 MG TABLET.DR. PO SCH (08:18)
[2017-02-08] MEDS: PARoxetine 20 MG TABLET PO SCH (08:18)
[2017-02-08] MEDS: POLYETHYLENE GLYCOL 3350 17 GM PACKET. PO SCH (08:18)
[2017-02-08] MEDS: CETIRIZINE HCL 10 MG TABLET. PO SCH (08:18)
[2017-02-08] MEDS: oxyCODONE ER 10 MG TAB.ER.12H PO SCH (08:19)
--- NOTE | 2017-02-08 09:32 | PDOC ---
PROGRESS NOTES Subjective Subjective LATE ENTRY for Dr. Olsen- patient seen at 1030 on 02/07/17 doing well no pain Objective Objective Vital Signs Date Time Temp Pulse Resp B/P (MAP) Pulse Ox O2 Delivery O2 Flow Rate FiO2 02/08/17 08:27 Room Air 02/08/17 07:00 98.8 58 18 121/66 (84) 95 98.8 Physical Exam General: Alert, Oriented X3, Cooperative, No acute distress Neuro: Other (neuro intact) Skin: Other (no expressible drainge from incision but dressing from yesterday has purulent stain) Plan Plan of Care continue antibiotics per ID PICC Wound care D/W Dr. Irene Comment Review of Relevant I have reviewed the following items abelardo (where applicable) has been applied. Labs Laboratory Tests Test 02/07/17 02:40 02/08/17 03:10 Vancomycin Level Trough 8.4 mcg/mL (10.0-20.0) 15.5 mcg/mL (10.0-20.0) Vancomycin Last Dose Date [id number] Vancomycin Last Dose Time 1999 Laboratory Tests Test 02/08/17 03:10 Vancomycin Level Trough 15.5 mcg/mL (10.0-20.0) Vancomycin Last Dose Date [id number] Vancomycin Last Dose Time 1999 Microbiology 02/05/17 Gram Stain - Final, Complete Medications Current Medications Aspirin (Ecotrin) 81 mg DAILY PO Last administered on 02/08/17 08:18; Start at 13:00 Cetirizine HCl (ZyrTEC) 10 mg DAILY PO Last administered on 02/08/17 08:18; Start 02/05/17 at 12:00 Diltiazem HCl (Cardizem 24hr Cd) 240 mg DAILY PO Last administered on 08:22; Start 02/05/17 at 12:00 Docusate Sodium (Colace) 100 mg BID PO ; Start 02/05/17 at 12:00; Stop 02/05/17 at 16:16; Status DC Oxycodone HCl (OxyCONTIN) 10 mg BID PO Last administered on 02/08/17 08:19; Start 02/05/17 at 12:00 Paroxetine HCl (Paxil) 20 mg DAILY PO Last administered on 02/08/17 08:18; Start 02/05/17 at 12:00 Tamsulosin HCl (Flomax) 0.4 mg DAILY PO Last administered on 02/08/17 08:18; Start 02/05/17 at 12:00 Tizanidine HCl (Zanaflex) 4 mg PRN TID PRN PO MUSCLE SPASMS; Start 02/05/17 at 11:15 Atorvastatin Calcium (Lipitor) 80 mg QHS PO Last administered on 02/07/17 20: 10; Start 02/05/17 at 21:00 Oxycodone HCl (Roxicodone) 10 mg PRN Q6HRS PRN PO PAIN; Start 02/05/17 at 11:15 ; Stop 02/05/17 at 12:25; Status DC Oxycodone HCl (Roxicodone) 20 mg PRN Q6HRS PRN PO PAIN; Start 02/05/17 at 11:15 ; Stop 02/05/17 at 12:25; Status DC Acetaminophen (Tylenol) 650 mg PRN Q6HRS PRN PO MILD PAIN / TEMP; Start at 11:30; Stop 02/05/17 at 14:59; Status DC Al Hydroxide/Mg Hydroxide (Mylanta Plus Xs) 30 ml PRN Q3HRS PRN PO HEARTBURN / GAS; Start 02/05/17 at 11:30 Calcium Carbonate/ Glycine (Tums) 500 mg PRN Q3HRS PRN PO INDIGESTION Last administered on 02/05/17 20:42; Start 02/05/17 at 11:30 Diphenhydramine HCl (Benadryl) 25 mg PRN Q6HRS PRN PO ITCHING; Start 02/05/17 at 11:30 Diphenhydramine HCl (Benadryl) 25 mg PRN Q6HRS PRN IV ITCHING; Start 02/05/17 at 11:30 Zolpidem Tartrate (Ambien) 5 mg PRN QHS PRN PO INSOMNIA, MAY REPEAT IN 1HR Last administered on 02/05/17 20:38; Start 02/05/17 at 11:30 Sodium Chloride (Normal Saline Flush) 3 ml QSHIFT PRN IV AFTER MEDS AND BLOOD DRAWS; Start 02/05/17 at 11:30 Docusate Sodium (Colace) 100 mg BID PO ; Start 02/05/17 at 12:00; Stop 02/05/17 at 13:42; Status DC Magnesium Hydroxide (Milk Of Magnesia) 2,400 mg PRN Q12HR PRN PO CONSTIPATION; Start 02/05/17 at 11:30 Ondansetron HCl (Zofran) 4 mg PRN Q6HRS PRN IV NAUESA, 1ST CHOICE; Start at 11:30 Oxycodone HCl (Roxicodone) 10 mg PRN Q6HRS PRN PO BREAKTHROUGH PAIN Last administered on 02/05/17 12:30; Start 02/05/17 at 12:30; Stop 02/05/17 at 16:04 ; Status DC Oxycodone HCl (Roxicodone) 20 mg PRN Q6HRS PRN PO BREAKTHROUGH PAIN; Start at 12:30; Stop 02/05/17 at 16:04; Status DC Vancomycin HCl (Vanco Per Pharmacy) 1 each PRN DAILY PRN MC SEE COMMENTS Last administered on 02/08/17 04:59; Start 02/05/17 at 13:45 Piperacillin Sod/ Tazobactam Sod 3.375 gm/Sodium Chloride 50 ml @ 100 mls/hr Q6HRS IV Last administered on 02/08/17 05:56; Start 02/05/17 at 16:00 Vancomycin HCl 2 gm/Sodium Chloride 500 ml @ 250 mls/hr ONCE ONCE IV Last administered on 02/05/17 14:45; Start 02/05/17 at 14:00; Stop 02/05/17 at 15:59 ; Status DC Acetaminophen (Tylenol) 650 mg PRN Q4HRS PRN PO PAIN; Start 02/05/17 at 15:00 Nitroglycerin (Nitrostat) 0.4 mg PRN Q5MIN PRN SL CHEST PAIN; Start 02/05/17 at 15:00 Oxycodone HCl (Roxicodone) 10 mg PRN Q4HRS PRN PO BREAKTHROUGH PAIN Last administered on 02/05/17 19:25; Start 02/05/17 at 16:15 Oxycodone HCl (Roxicodone) 20 mg PRN Q4HRS PRN PO BREAKTHROUGH PAIN Last administered on 02/08/17 08:27; Start 02/05/17 at 16:15 Senna/Docusate Sodium (Senna Plus) 2 tab QHS PO Last administered on 02/07/17 20:10; Start 02/05/17 at 21:00 Polyethylene Glycol (miraLAX PACKET) 17 gm DAILY PO Last administered on 08:18; Start 02/06/17 at 09:00 Vancomycin HCl 1.25 gm/Sodium Chloride 250 ml @ 167 mls/hr Q12H IV Last administered on 02/06/17 15:26; Start 02/06/17 at 03:00; Stop 02/07/17 at 03:37 ; Status DC Vancomycin HCl 1 each 1X ONCE MC Last administered on 02/07/17 02:48; Start 02/07/17 at 02:30; Stop 02/07/17 at 02:31; Status DC Potassium Chloride (Klor-Con) 20 meq 1X ONCE PO Last administered on 10:14; Start 02/06/17 at 10:30; Stop 02/06/17 at 10:31; Status DC Vancomycin HCl 1.25 gm/Sodium Chloride 250 ml @ 167 mls/hr Q8H IV Last administered on 02/08/17 04:16; Start 02/07/17 at 04:00 Vancomycin HCl 1 each 1X ONCE MC Last administered on 02/08/17 03:30; Start 02/08/17 at 03:30; Stop 02/08/17 at 03:31; Status DC Sodium Chloride (Normal Saline Flush) 10 ml QSHIFT PRN IV AFTER MEDS AND BLOOD DRAWS; Start 02/07/17 at 08:45 Sodium Chloride (Normal Saline Flush) 10 ml PRN Q5MIN PRN IV AFTER MEDS AND BLOOD DRAWS; Start 02/07/17 at 08:45 Sodium Chloride (Normal Saline Flush) 20 ml PRN Q5MIN PRN IV AFTER MEDS AND BLOOD DRAWS; Start 02/07/17 at 08:45 Potassium Chloride (Klor-Con) 20 meq 1X ONCE PO Last administered on 17:23; Start 02/07/17 at 16:30; Stop 02/07/17 at 16:31; Status DC Active Scripts Active Colace (Docusate Sodium) 100 Mg Capsule 100 Mg PO BID Reported Cetirizine Hcl 10 Mg Tablet 1 Tab PO DAILY Paroxetine Hcl 20 Mg Tablet 20 Mg PO DAILY Aspir 81 (Aspirin) 81 Mg Tablet.dr 1 Tab PO DAILY Tizanidine Hcl 4 Mg Tablet 4 Mg PO TID PRN Oxycontin (Oxycodone HCl) 10 Mg Tab.er.12h 10 Mg PO BID Oxycodone Hcl 10 Mg Tablet 1 Tab PO TID Tamsulosin Hcl 0.4 Mg Cap.er.24h 1 Cap PO DAILY Cardizem Cd (Diltiazem Hcl) 240 Mg Cap.er.24h 240 Mg PO DAILY Atorvastatin Calcium 80 Mg Tablet 80 Mg PO DAILY Vitals/I & O Vital Sign - Last 24 Hours 02/07/17 02/07/17 02/07/17 02/07/17 11:00 12:10 15:00 16:11 Temp 97.7 98.9 97.7 98.9 Pulse 62 52 Resp 20 18 B/P (MAP) 145/81 (102) 127/76 (93) Pulse Ox 92 95 O2 Delivery Room Air Room Air Room Air Room Air 02/07/17 02/07/17 02/07/17 02/07/17 19:00 20:00 20:10 20:11 Temp 97.9 97.9 Pulse 54 Resp 16 20 20 B/P (MAP) 123/75 (91) Pulse Ox 93 95 95 O2 Delivery Room Air Room Air Room Air 02/07/17 02/07/17 02/08/17 02/08/17 23:00 23:40 00:10 03:00 Temp 97.9 98.1 97.9 98.1 Pulse 55 60 Resp 18 20 20 18 B/P (MAP) 133/77 (95) 127/69 (88) Pulse Ox 92 95 95 98 O2 Delivery Room Air Room Air 02/08/17 02/08/17 02/08/17 02/08/17 04:16 05:16 07:00 08:19 Temp 98.8 98.8 Pulse 58 Resp 20 20 18 B/P (MAP) 121/66 (84) Pulse Ox 95 95 95 O2 Delivery Room Air Room Air Room Air Room Air 02/08/17 08:27 O2 Delivery Room Air KATLYN FUNG APRN Feb 08, 2017 09:32
--- NOTE | 2017-02-08 09:45 | PDOC ---
Infectious Disease Note Subjective Subjective pt feeling good ROS ROS GEN: Denies fevers, chills, sweats HEENT: Denies blurred vision, sore throat CV: Denies chest pain RESP: Denies shortness of air, cough GI: Denies n/v/d NEURO: Denies confusion, dizziness MSK: Denies weakness, joint pain/swelling Vital Sign Vital Signs Vital Signs Date Time Temp Pulse Resp B/P (MAP) Pulse Ox O2 Delivery O2 Flow Rate FiO2 02/08/17 09:00 58 121/66 02/08/17 08:27 Room Air 02/08/17 07:00 98.8 18 95 98.8 Physical Exam PHYSICAL EXAM GENERAL: NAD, Alert HEENT: PERRL, OC/OP NECK: Supple, no JVD, no LN LUNGS: Clear HEART: S1S2, no gallop, no murmur ABD: Soft, NT, no organomegaly, no rebound EXT: No edema, no cyanosis 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
--- NOTE | 2017-02-08 10:48 | PDOC ---
PROGRESS NOTES Subjective Subjective feels better. has MRSA growing from lumbar wound. discussed with patient and dr. иван lozada. patient to be dismissed with about 6 weeks of iv antibiotics and then chronic oral doxycycline suppression. Objective Objective Vital Signs Date Time Temp Pulse Resp B/P (MAP) Pulse Ox O2 Delivery O2 Flow Rate FiO2 02/08/17 09:00 58 121/66 02/08/17 08:27 Room Air 02/08/17 07:00 98.8 18 95 98.8 Physical Exam Abdomen: Soft Heart: Regular rate, Normal S1, Normal S2 Extremities: No edema General: Alert HEENT: Atraumatic Lungs: Clear to auscultation Neuro: Normal speech Psych/Mental Status: Mental status NL Skin: No rashes Assessment Assessment 1. MRSA Lumbar wound infection 2. Recent lumbar L5-S1 hemilaminotomy with L5-S1 fusion. 3. Coronary artery disease. 4. History of paroxysmal supraventricular tachycardia. 5. Chronic pain. 6. Lumbar spondylosis. 7. Osteoarthritis with a previous right total knee arthroplasty. 8. Hyperlipidemia. 9. Coronary artery disease with previous coronary artery angioplasty and Plan Plan of Care iv daptomycin out patient with weekly labs to dr. иван lozada told to make appt with me in office next week dismiss today Comment Review of Relevant I have reviewed the following items abelardo (where applicable) has been applied. Labs Laboratory Tests Test 02/07/17 02:40 02/08/17 03:10 Vancomycin Level Trough 8.4 mcg/mL (10.0-20.0) 15.5 mcg/mL (10.0-20.0) Vancomycin Last Dose Date [id number] Vancomycin Last Dose Time 1999 Laboratory Tests Test 02/08/17 03:10 Vancomycin Level Trough 15.5 mcg/mL (10.0-20.0) Vancomycin Last Dose Date [id number] Vancomycin Last Dose Time 1999 Microbiology 02/05/17 Gram Stain - Final, Complete Medications Current Medications Aspirin (Ecotrin) 81 mg DAILY PO Last administered on 02/08/17 08:18; Start at 13:00 Cetirizine HCl (ZyrTEC) 10 mg DAILY PO Last administered on 02/08/17 08:18; Start 02/05/17 at 12:00 Diltiazem HCl (Cardizem 24hr Cd) 240 mg DAILY PO Last administered on 08:22; Start 02/05/17 at 12:00 Docusate Sodium (Colace) 100 mg BID PO ; Start 02/05/17 at 12:00; Stop 02/05/17 at 16:16; Status DC Oxycodone HCl (OxyCONTIN) 10 mg BID PO Last administered on 02/08/17 08:19; Start 02/05/17 at 12:00 Paroxetine HCl (Paxil) 20 mg DAILY PO Last administered on 02/08/17 08:18; Start 02/05/17 at 12:00 Tamsulosin HCl (Flomax) 0.4 mg DAILY PO Last administered on 02/08/17 08:18; Start 02/05/17 at 12:00 Tizanidine HCl (Zanaflex) 4 mg PRN TID PRN PO MUSCLE SPASMS; Start 02/05/17 at 11:15 Atorvastatin Calcium (Lipitor) 80 mg QHS PO Last administered on 02/07/17 20: 10; Start 02/05/17 at 21:00 Oxycodone HCl (Roxicodone) 10 mg PRN Q6HRS PRN PO PAIN; Start 02/05/17 at 11:15 ; Stop 02/05/17 at 12:25; Status DC Oxycodone HCl (Roxicodone) 20 mg PRN Q6HRS PRN PO PAIN; Start 02/05/17 at 11:15 ; Stop 02/05/17 at 12:25; Status DC Acetaminophen (Tylenol) 650 mg PRN Q6HRS PRN PO MILD PAIN / TEMP; Start at 11:30; Stop 02/05/17 at 14:59; Status DC Al Hydroxide/Mg Hydroxide (Mylanta Plus Xs) 30 ml PRN Q3HRS PRN PO HEARTBURN / GAS; Start 02/05/17 at 11:30 Calcium Carbonate/ Glycine (Tums) 500 mg PRN Q3HRS PRN PO INDIGESTION Last administered on 02/05/17 20:42; Start 02/05/17 at 11:30 Diphenhydramine HCl (Benadryl) 25 mg PRN Q6HRS PRN PO ITCHING; Start 02/05/17 at 11:30 Diphenhydramine HCl (Benadryl) 25 mg PRN Q6HRS PRN IV ITCHING; Start 02/05/17 at 11:30 Zolpidem Tartrate (Ambien) 5 mg PRN QHS PRN PO INSOMNIA, MAY REPEAT IN 1HR Last administered on 02/05/17 20:38; Start 02/05/17 at 11:30 Sodium Chloride (Normal Saline Flush) 3 ml QSHIFT PRN IV AFTER MEDS AND BLOOD DRAWS; Start 02/05/17 at 11:30 Docusate Sodium (Colace) 100 mg BID PO ; Start 02/05/17 at 12:00; Stop 02/05/17 at 13:42; Status DC Magnesium Hydroxide (Milk Of Magnesia) 2,400 mg PRN Q12HR PRN PO CONSTIPATION; Start 02/05/17 at 11:30 Ondansetron HCl (Zofran) 4 mg PRN Q6HRS PRN IV NAUESA, 1ST CHOICE; Start at 11:30 Oxycodone HCl (Roxicodone) 10 mg PRN Q6HRS PRN PO BREAKTHROUGH PAIN Last administered on 02/05/17 12:30; Start 02/05/17 at 12:30; Stop 02/05/17 at 16:04 ; Status DC Oxycodone HCl (Roxicodone) 20 mg PRN Q6HRS PRN PO BREAKTHROUGH PAIN; Start at 12:30; Stop 02/05/17 at 16:04; Status DC Vancomycin HCl (Vanco Per Pharmacy) 1 each PRN DAILY PRN MC SEE COMMENTS Last administered on 02/08/17 04:59; Start 02/05/17 at 13:45 Piperacillin Sod/ Tazobactam Sod 3.375 gm/Sodium Chloride 50 ml @ 100 mls/hr Q6HRS IV Last administered on 02/08/17 05:56; Start 02/05/17 at 16:00; Stop at 09:48; Status DC Vancomycin HCl 2 gm/Sodium Chloride 500 ml @ 250 mls/hr ONCE ONCE IV Last administered on 02/05/17 14:45; Start 02/05/17 at 14:00; Stop 02/05/17 at 15:59 ; Status DC Acetaminophen (Tylenol) 650 mg PRN Q4HRS PRN PO PAIN; Start 02/05/17 at 15:00 Nitroglycerin (Nitrostat) 0.4 mg PRN Q5MIN PRN SL CHEST PAIN; Start 02/05/17 at 15:00 Oxycodone HCl (Roxicodone) 10 mg PRN Q4HRS PRN PO BREAKTHROUGH PAIN Last administered on 02/05/17 19:25; Start 02/05/17 at 16:15 Oxycodone HCl (Roxicodone) 20 mg PRN Q4HRS PRN PO BREAKTHROUGH PAIN Last administered on 02/08/17 08:27; Start 02/05/17 at 16:15 Senna/Docusate Sodium (Senna Plus) 2 tab QHS PO Last administered on 02/07/17 20:10; Start 02/05/17 at 21:00 Polyethylene Glycol (miraLAX PACKET) 17 gm DAILY PO Last administered on 08:18; Start 02/06/17 at 09:00 Vancomycin HCl 1.25 gm/Sodium Chloride 250 ml @ 167 mls/hr Q12H IV Last administered on 02/06/17 15:26; Start 02/06/17 at 03:00; Stop 02/07/17 at 03:37 ; Status DC Vancomycin HCl 1 each 1X ONCE MC Last administered on 02/07/17 02:48; Start 02/07/17 at 02:30; Stop 02/07/17 at 02:31; Status DC Potassium Chloride (Klor-Con) 20 meq 1X ONCE PO Last administered on 10:14; Start 02/06/17 at 10:30; Stop 02/06/17 at 10:31; Status DC Vancomycin HCl 1.25 gm/Sodium Chloride 250 ml @ 167 mls/hr Q8H IV Last administered on 02/08/17 04:16; Start 02/07/17 at 04:00; Stop 02/08/17 at 09:48 ; Status DC Vancomycin HCl 1 each 1X ONCE MC Last administered on 02/08/17 03:30; Start 02/08/17 at 03:30; Stop 02/08/17 at 03:31; Status DC Sodium Chloride (Normal Saline Flush) 10 ml QSHIFT PRN IV AFTER MEDS AND BLOOD DRAWS; Start 02/07/17 at 08:45 Sodium Chloride (Normal Saline Flush) 10 ml PRN Q5MIN PRN IV AFTER MEDS AND BLOOD DRAWS; Start 02/07/17 at 08:45 Sodium Chloride (Normal Saline Flush) 20 ml PRN Q5MIN PRN IV AFTER MEDS AND BLOOD DRAWS; Start 02/07/17 at 08:45 Potassium Chloride (Klor-Con) 20 meq 1X ONCE PO Last administered on t 17:23; Start 02/07/17 at 16:30; Stop 02/07/17 at 16:31; Status DC Daptomycin 540 mg/ Sodium Chloride 50 ml @ 100 mls/hr Q24H IV ; Start 02/08/17 at 11:00 Active Scripts Active Colace (Docusate Sodium) 100 Mg Capsule 100 Mg PO BID Reported Cetirizine Hcl 10 Mg Tablet 1 Tab PO DAILY Paroxetine Hcl 20 Mg Tablet 20 Mg PO DAILY Aspir 81 (Aspirin) 81 Mg Tablet.dr 1 Tab PO DAILY Tizanidine Hcl 4 Mg Tablet 4 Mg PO TID PRN Oxycontin (Oxycodone HCl) 10 Mg Tab.er.12h 10 Mg PO BID Oxycodone Hcl 10 Mg Tablet 1 Tab PO TID Tamsulosin Hcl 0.4 Mg Cap.er.24h 1 Cap PO DAILY Cardizem Cd (Diltiazem Hcl) 240 Mg Cap.er.24h 240 Mg PO DAILY Atorvastatin Calcium 80 Mg Tablet 80 Mg PO DAILY Vitals/I & O Vital Sign - Last 24 Hours 02/07/17 02/07/17 02/07/17 02/07/17 11:00 12:10 15:00 16:11 Temp 97.7 98.9 97.7 98.9 Pulse 62 52 Resp 20 18 B/P (MAP) 145/81 (102) 127/76 (93) Pulse Ox 92 95 O2 Delivery Room Air Room Air Room Air Room Air 02/07/17 02/07/17 02/07/17 02/07/17 19:00 20:00 20:10 20:11 Temp 97.9 97.9 Pulse 54 Resp 16 20 20 B/P (MAP) 123/75 (91) Pulse Ox 93 95 95 O2 Delivery Room Air Room Air Room Air 02/07/17 02/07/17 02/08/17 02/08/17 23:00 23:40 00:10 03:00 Temp 97.9 98.1 97.9 98.1 Pulse 55 60 Resp 18 20 20 18 B/P (MAP) 133/77 (95) 127/69 (88) Pulse Ox 92 95 95 98 O2 Delivery Room Air Room Air 02/08/17 02/08/17 02/08/17 02/08/17 04:16 05:16 07:00 08:00 Temp 98.8 98.8 Pulse 58 Resp 20 20 18 B/P (MAP) 121/66 (84) Pulse Ox 95 95 95 O2 Delivery Room Air Room Air Room Air Room Air 02/08/17 02/08/17 02/08/17 08:19 08:27 09:00 Pulse 58 B/P (MAP) 121/66 O2 Delivery Room Air Room Air NANY WANG MD Feb 08, 2017 10:48
[2017-02-08 11:00] VITALS: BP 117/79
[2017-02-08] MEDS ORDERED: DAPTOmycin 540 MG in IV NORMAL SALINE 50ML 50 ML IV SCH (11:00)
--- NOTE | 2017-02-08 13:38 | DISCH ---
DISCHARGE INSTRUCTIONS Condition on Discharge Condition on Discharge: Stable Activity After Discharge Activity Instructions for Disc: Activity as tolerated, Avoid exertion Other activity instructions: no driving for a week Bathing Instructions: Shower-keep dressing dry Lifting Instructions after Dis: No heavy lifting Diet after Discharge Additional Diet Restrictions: resume home diet Wound Incision Care Wound/Incision Care: Ice to area for comfort Other wound/incision instructi: daily dressing change and as needed Contacting the DROlivia after DC Call your doctor for: Concerns you may have Follow-Up Follow up with: Dr. Massey in 1 week [phone] Follow Up With: Dr. Gonzalez next week, Dr. Irene 10 to 14 days [phone] RANDOLPH MASSEY MD Feb 08, 2017 13:38
[2017-02-08] MEDS ORDERED: OXYC5TAB95 PO (13:40)
== END 2017-02-08 15:00 | disposition home or self-care (01) | DRG 863 ==
LOC: 4 NORTH 11:05
PROVIDERS: ADMIT Neurological Surgery; ATTEND Neurological Surgery
PROC: 02HV33Z Insertion of Infusion Device into Superior Vena Cava, Percutaneous Approach (ICD-10-PCS; principal; 2017-02-07)
DX: T81.4XXA Infection following a procedure, initial encounter (principal); B95.62 Methicillin resistant Staphylococcus aureus infection as the cause of diseases classified elsewhere; E78.5 Hyperlipidemia, unspecified; G89.29 Other chronic pain; I25.10 Atherosclerotic heart disease of native coronary artery without angina pectoris; K21.9 Gastro-esophageal reflux disease without esophagitis; M19.90 Unspecified osteoarthritis, unspecified site; M47.816 Spondylosis without myelopathy or radiculopathy, lumbar region; K64.8 Other hemorrhoids; N40.0 Benign prostatic hyperplasia without lower urinary tract symptoms; Z96.651 Presence of right artificial knee joint; Z95.5 Presence of coronary angioplasty implant and graft; Z82.49 Family history of ischemic heart disease and other diseases of the circulatory system
CPT/HCPCS: 36415; 71010; 72131; 80048; 80053; 80202; 85025; 85651; 87071; 87075; 87116; 87205; 93005; J0878; J2543; J3370; J7040; J7050; J7030

== ENCOUNTER → 2017-03-12 | Outpatient (CLI) | payer MEDICARE, BC ==
[2017-03-11 10:00] VITALS: BP 144/76
[~2017-03-12] MED LIST changes: +GADOBUTROL 10 MMOL/10 ML VIAL IV ONE; +OXYC5TAB95 PO
--- NOTE | 2017-03-12 10:20 | KCIC ---
EXAM: Lumbar spine MRI without and with contrast. HISTORY: Postoperative infection. Right leg pain. Difficulty walking. TECHNIQUE: Multiplanar, multisequence magnetic resonance imaging of the lumbar spine was performed prior to and following the administration of 9 cc Gadavist intravenous contrast. COMPARISON: 12/29/2016 FINDINGS: There are findings consistent with interval instrumented posterior spinal fusion at L5-S1. The instrumentation consists of paired transpedicular screws bridged by vertical rods at the fused levels. There has been slight interval decrease grade 1-2 anterolisthesis of L5 on S1 with associated pars interarticularis defects. This measures approximately 13 mm compared to a prior measurement of 15 mm. There is severe degenerative endplate remodeling with disc space narrowing and osteophytosis at this level, described in detail below. There is stable minimal retrolisthesis of L4 on L5. There is degenerative endplate remodeling at multiple additional lumbar levels, also described in detail below. There are few small endplate Schmorl's nodes. No suspicious osseous lesion is seen. There is edema within the posterior back soft tissues at L4-S1. There is suspected tiny postoperative seroma within the left posterior lumbar soft tissues. The conus terminates at L1. At T11-T12, there is a broad-based shallow right paracentral disc protrusion superimposed on endplate remodeling. There is mild facet arthropathy. There is mild bilateral foraminal stenosis. At T12-L1, there is no stenosis. At L1-L2, there is a disc bulge with endplate remodeling. There is mild bilateral foraminal stenosis. At L2-L3, there is a disc bulge and endplate remodeling. There is no stenosis. At L3-L4, there is a left paracentral disc protrusion and annular tear superimposed on a disc bulge and endplate remodeling. There is no stenosis. At L4-L5, there is a broad-based shallow posterior central to right paracentral disc protrusion superimposed on a disc bulge and endplate remodeling. There is no stenosis. At L5-S1, there is a left foraminal to extraforaminal disc protrusion which effaces the exiting left L5 nerve root. This is superimposed on a disc bulge, left paracentral tear and endplate osteophytosis. There is anterolisthesis with pars interarticularis defects. There is spinal instrumentation limiting evaluation for foraminal stenosis. There is suspected moderate right and moderate to severe left foraminal stenosis. IMPRESSION: 1. Interval instrumented posterior spinal fusion at L5-S1. The presence of metallic instrumentation limits evaluation for foraminal stenosis at this level. There has been suspected slight interval increase in a left foraminal to extraforaminal disc protrusion resulting in effacement of the exiting left L5 nerve root at this level. The combination of this finding and anterolisthesis results in suspected moderate right and moderate to severe left foraminal stenosis. The degree of listhesis appears slightly decreased compared to the prior study. 2. Multilevel degenerative change within the remainder of the lumbar spine, similar compared to the prior study when allowing for differences in technique. 3. Edema within the posterior spinal soft tissues at L4-S1 and suspected tiny postoperative seroma within the left posterior back soft tissues. No convincing infected fluid collection is seen. Electronically signed by: Vicky Smith MD (03/12/2017 10:17 AM) [facility]
== END | disposition home or self-care (01) ==
LOC: KCIC MRI 09:07
PROVIDERS: ATTEND Neurological Surgery
DX: T81.4XXA Infection following a procedure, initial encounter (principal); M48.061 Spinal stenosis, lumbar region without neurogenic claudication; Z98.1 Arthrodesis status
CPT/HCPCS: 72158; A9585

== ENCOUNTER 2017-04-20 17:23 | Emergency (ER) | payer MEDICARE, BC ==
[~2017-04-20] VITALS: Ht 188 cm; Wt 88.5 kg
[~2017-04-20 17:23] MED LIST changes: -GADOBUTROL 10 MMOL/10 ML VIAL IV ONE
--- NOTE | 2017-04-20 18:09 | PHYS DOC ---
Past Medical History Past Medical History: CAD, High Cholesterol, Hypertension Past Surgical History: Other Additional Past Surgical Histo: stents Alcohol Use: Heavy Drug Use: None Adult General Chief Complaint Chief Complaint: DIZZY/LIGHT HEADED HPI HPI Patient is a 67 year old male who presents with vertigo type symptoms. She's had this before and was given meclizine and it resolved. He states this time is started approximately 6 weeks ago is very intermittent in its when he stands up too quickly or turns his head from [id number] it comes on. He states he was seen about a week ago by urgent care and was given scopolamine and it really hasn't resolved it completely, although it has helped. He denies any fevers chills nausea vomiting or shortness of breath. He denies a headache. Review of Systems Review of Systems Constitutional: Denies fever or chills [] Eyes: Denies change in visual acuity, redness, or eye pain [] HENT: Denies nasal congestion or sore throat [] Respiratory: Denies cough or shortness of breath [] Cardiovascular: No additional information not addressed in HPI [] GI: Denies abdominal pain, nausea, vomiting, bloody stools or diarrhea [] : Denies dysuria or hematuria [] Musculoskeletal: Denies back pain or joint pain [] Integument: Denies rash or skin lesions [] Neurologic: Denies headache, focal weakness or sensory changes, positive for vertigo Endocrine: Denies polyuria or polydipsia [] All other systems were reviewed and found to be within normal limits, except as documented in this note. Current Medications Current Medications Current Medications Medications (Trade) Dose Ordered Sig/Britney Start Time Stop Time Status Last Admin Dose Admin Doxycycline Hyclate (Vibra-Tab) 100 mg 1X ONCE 04/20/17 20:15 04/20/17 20:16 DC 04/20/17 20:32 100 MG Meclizine HCl (Antivert) 25 mg 1X ONCE 04/20/17 18:45 04/20/17 18:46 DC 04/20/17 19:08 25 MG Oxycodone HCl (OxyCONTIN) 10 mg Q12HR 04/20/17 22:00 04/20/17 21:02 10 MG Oxycodone HCl (Roxicodone) 10 mg 1X ONCE 04/20/17 20:15 04/20/17 20:16 DC 04/20/17 20:32 10 MG Allergies Allergies Allergies Coded Allergies Type Severity Reaction Last Updated Verified I S O L A T I O N *CONTACT* Allergy Unknown 03/23/17 Yes No Known Medication Allergies Allergy Unknown 03/23/17 Yes Physical Exam Physical Exam Constitutional: Well developed, well nourished, no acute distress, non-toxic appearance. [] HENT: Normocephalic, atraumatic, bilateral external ears normal, oropharynx moist, no oral exudates, nose normal. [] Eyes: PERRLA, EOMI, conjunctiva normal, no discharge. [] Neck: Normal range of motion, no tenderness, supple, no stridor. [] Cardiovascular:Heart rate regular rhythm, no murmur [] Lungs & Thorax: Bilateral breath sounds clear to auscultation [] Abdomen: Bowel sounds normal, soft, no tenderness, no masses, no pulsatile masses. [] Skin: Warm, dry, no erythema, no rash. [] Back: No tenderness, no CVA tenderness. [] Extremities: No tenderness, no cyanosis, no clubbing, ROM intact, no edema. Cranial nerves II through XII, finger-nose, intact strength 5 out of 5 bilateral upper and lower extremities, no nystagmus is noted Neurologic: Alert and oriented X 3, normal motor function, normal sensory function, no focal deficits noted. [] Psychologic: Affect normal, judgement normal, mood normal. [] Current Patient Data Vital Signs Vital Signs Date Time Temp Pulse Resp B/P (MAP) Pulse Ox O2 Delivery O2 Flow Rate FiO2 04/20/17 21:02 18 98 Room Air 04/20/17 20:33 51 04/20/17 18:00 98.0 135/68 (90) 98.0 Lab Values Laboratory Tests Test 04/20/17 19:00 04/20/17 19:04 White Blood Count 7.4 x10^3/uL (4.0-11.0) Red Blood Count 4.75 x10^6/uL (4.30-5.70) Hemoglobin 14.3 g/dL (13.0-17.5) Hematocrit 42.9 % (39.0-53.0) Mean Corpuscular Volume 90 fL (79-100) Mean Corpuscular Hemoglobin 30 pg (25-35) Mean Corpuscular Hemoglobin Concent 33 g/dL (31-37) Red Cell Distribution Width 13.7 % (11.5-14.5) Platelet Count 156 x10^3/uL (140-400) Neutrophils (%) (Auto) 60 % (31-73) Lymphocytes (%) (Auto) 30 % (24-48) Monocytes (%) (Auto) 7 % (0-9) Eosinophils (%) (Auto) 2 % (0-3) Basophils (%) (Auto) 1 % (0-3) Neutrophils # (Auto) 4.4 x10^3uL (1.8-7.7) Lymphocytes # (Auto) 2.2 x10^3/uL (1.0-4.8) Monocytes # (Auto) 0.5 x10^3/uL (0.0-1.1) Eosinophils # (Auto) 0.2 x10^3/uL (0.0-0.7) Basophils # (Auto) 0.0 x10^3/uL (0.0-0.2) Prothrombin Time 13.5 SEC (11.7-14.0) Prothrombin Time INR 1.1 (0.8-1.1) Sodium Level 141 mmol/L (136-145) Potassium Level 3.5 mmol/L (3.5-5.1) Chloride Level 104 mmol/L (98-107) Carbon Dioxide Level 29 mmol/L (21-32) Anion Gap 8 (6-14) Blood Urea Nitrogen 14 mg/dL (8-26) Creatinine 0.8 mg/dL (0.7-1.3) Estimated GFR (Cockcroft-Gault) 96.4 Glucose Level 96 mg/dL (70-99) Calcium Level 8.6 mg/dL (8.5-10.1) Magnesium Level 1.7 mg/dL (1.8-2.4) L Total Bilirubin 0.8 mg/dL (0.2-1.0) Direct Bilirubin 0.2 mg/dL (0.0-0.2) Aspartate Amino Transferase (AST) 40 U/L (15-37) H Alanine Aminotransferase (ALT) 42 U/L (16-63) Alkaline Phosphatase 41 U/L (46-116) L Creatine Kinase 514 U/L (39-308) H Creatine Kinase MB (Mass) 10.9 ng/mL (0.0-3.6) H Creatine Kinase MB Relative Index 2.1 % (0-4) Troponin I Quantitative < 0.017 ng/mL (0.000-0.055) OI-Mpn-V-Type Natriuretic Peptide 153 pg/mL (0-124) H Total Protein 6.7 g/dL (6.4-8.2) Albumin 3.9 g/dL (3.4-5.0) Thyroid Stimulating Hormone (TSH) 6.461 uIU/mL (0.358-3.74) H Urine Collection Type Unknown Urine Color Yellow Urine Clarity Clear Urine pH 6.0 Urine Specific Ama <=1.005 Urine Protein Negative mg/dL (NEG-TRACE) Urine Glucose (UA) Negative mg/dL (NEG) Urine Ketones (Stick) Negative mg/dL (NEG) Urine Blood Negative (NEG) Urine Nitrite Negative (NEG) Urine Bilirubin Negative (NEG) Urine Urobilinogen Dipstick 0.2 mg/dL (0.2 mg/dL) Urine Leukocyte Esterase Negative (NEG) Urine RBC 0 /HPF (0-2) Urine WBC 0 /HPF (0-4) Urine Squamous Epithelial Cells Occ /LPF Urine Bacteria 0 /HPF (0-FEW) Laboratory Tests 04/20/17 19:00 Laboratory Tests 04/20/17 19:00 EKG EKG EKG shows sinus rhythm with rate of 51 bpm, no ST elevations, T-wave inversion in lead 3, left axis deviation, QTC 394 ms, as interpreted by me. Radiology/Procedures Radiology/Procedures [facility] [address] [place] [address] IMAGING REPORT Signed PATIENT: CHANI JAMES ACCOUNT: [id number] : 1950 LOCATION: ER AGE: 67 SEX: M EXAM STATUS: REG ER ORD. PHYSICIAN: CORNELIA MCDONALD MD REASON: dizziness PROCEDURE: CT HEAD WO CONTRAST CT Head W/O Contrast: History: DIZZY/VERTIGO NO CONTRAST NO PREV Comparison: none Axial images were obtained without contrast. The mccarthy and white matter appears normal and symmetrical for the patients age. There is no mass effect, extraaxial fluid collections or hydrocephalus. There is no gross bleed. There is no focal loss of mccarthy-white matter distinction to suggest acute ischemia, i.e. stroke. Impression: No acute findings. RS Compliance Statement: One or more of the following individualized dose reduction techniques were utilized for this examination: 1. Automated exposure control 2. Adjustment of the mA and/or kV according to patient size 3. Use of iterative reconstruction technique Electronically signed by: Parmjit Armas III, MD (04/20/2017 7:20 PM) [facility] DICTATED and SIGNED BY: PARMJIT ARMAS III, MD DATE: 04/20/171918 CC: CORNELIA MCDONALD MD; NANY WANG MD ~ Impressions: Vertigo Course & Med Decision Making Course & Med Decision Making Pertinent Labs and Imaging studies reviewed. (See chart for details) Her exam is intact, he is able to ambulate with a steady gait. CT of his head does not show any acute abnormalities. He was given meclizine and he thinks it might be a little bit better but is unsure at this time. I informed him to DC the scopolamine patch. He is to follow-up with neurology. Return precautions given. He is agreeable Plan B discharged in stable condition this time. Dragon Disclaimer Dragon Disclaimer This electronic medical record was generated, in whole or in part, using a voice recognition dictation system. Departure Departure Impression: Primary Impression: Dizziness Disposition: ADMITTED INPATIENT Condition: STABLE Referrals: NANY WANG MD (PCP) Patient Instructions: Dizziness Additional Instructions: You were seen today for your dizziness. Your CAT scan of your head and all your blood work did not show any acute abnormality's. Your being discharged with meclizine. You can use instead of your scopolamine patch. Please follow instructions on the bottle. You can follow-up with urology. Please call Dr. Garcia and schedule point with him. Return back to ER if your dizziness gets worse, you have any weakness in your arms or legs, nausea vomiting chest pain or other concerns. You should also follow-up to primary care physician within the next week. Scripts Meclizine Hcl (MECLIZINE HCL) 25 Mg Tablet 1 TAB PO PRN TID Y for DIZZINESS, #30 TAB Prov: CORNELIA MCDONADL MD 04/20/17 CORNELIA MCDNOALD MD Apr 20, 2017 18:09
[2017-04-20] MEDS ORDERED: MECLIZINE HCL 12.5 MG TABLET. PO ONE (18:45)
[2017-04-20 19:11] LABS: BASO % 1 % (0-3); EOS % 2 % (0-3); HEMATOCRIT 42.9 % (39.0-53.0); HEMOGLOBIN 14.3 g/dL (13.0-17.5); LYMPH # 2.2 x10^3/uL (1.0-4.8); LYMPH % 30 % (24-48); MEAN CORPUSCULAR HEMOGLOBIN 30 pg (25-35); MEAN CORPUSCULAR HGB CONC 33 g/dL (31-37); MEAN CORPUSCULAR VOLUME 90 fL (79-100); MONO % 7 % (0-9); NEUT % 60 % (31-73); PLATELET COUNT 156 x10^3/uL (140-400); RED BLOOD COUNT 4.75 x10^6/uL (4.30-5.70); RED CELL DISTRIBUTION WIDTH 13.7 % (11.5-14.5); WHITE BLOOD COUNT 7.4 x10^3/uL (4.0-11.0)
[2017-04-20 19:16] LABS: BILIRUBIN,URINE NEGATIVE (NEG); GLUCOSE,URINE NEGATIVE (NEG); NITRITE,URINE NEGATIVE (NEG); PROTEIN,URINE NEGATIVE (NEG-TRACE); UROBILINOGEN,URINE 0.2 mg/dL (0.2 mg/dL)
[2017-04-20 19:17] LABS: INR 1.1 (0.8-1.1); PROTHROMBIN TIME PATIENT 13.5 SEC (11.7-14.0)
--- NOTE | 2017-04-20 19:24 | RAD ---
CT Head W/O Contrast: History: DIZZY/VERTIGO NO CONTRAST NO PREV Comparison: none Axial images were obtained without contrast. The mccarthy and white matter appears normal and symmetrical for the patients age. There is no mass effect, extraaxial fluid collections or hydrocephalus. There is no gross bleed. There is no focal loss of mccarthy-white matter distinction to suggest acute ischemia, i.e. stroke. Impression: No acute findings. RS Compliance Statement: One or more of the following individualized dose reduction techniques were utilized for this examination: 1. Automated exposure control 2. Adjustment of the mA and/or kV according to patient size 3. Use of iterative reconstruction technique Electronically signed by: Sukhi Vasquez III, MD (04/20/2017 7:20 PM) [facility]
[2017-04-20 19:28] LABS: BACTERIA,URINE 0 /HPF (0-FEW); RBC,URINE 0 /HPF (0-2); SQUAMOUS EPITHELIAL CELL,UR OCC /LPF; WBC,URINE 0 /HPF (0-4)
[2017-04-20 19:28] LABS: CALCIUM 8.6 mg/dL (8.5-10.1); CREATININE 0.8 mg/dL (0.7-1.3); GFR 96.4; POTASSIUM 3.5 mmol/L (3.5-5.1)
[2017-04-20 19:35] LABS: CKMB MASS 10.9 ng/mL (0.0-3.6)
[2017-04-20 19:36] LABS: ALBUMIN 3.9 g/dL (3.4-5.0); DIRECT BILIRUBIN 0.2 mg/dL (0.0-0.2); MAGNESIUM 1.7 mg/dL (1.8-2.4); TOTAL BILIRUBIN 0.8 mg/dL (0.2-1.0); TOTAL PROTEIN 6.7 g/dL (6.4-8.2)
[2017-04-20] MEDS ORDERED: DOXYCYCLINE HYCLATE 100 MG TABLET PO ONE (20:15)
[2017-04-20] MEDS ORDERED: oxyCODONE IR 5 MG TABLET PO ONE (20:15)
[2017-04-20 20:33] VITALS: BP 128/74
[2017-04-20] MEDS ORDERED: MECL25TA3 PO (21:43)
[2017-04-20] MEDS ORDERED: oxyCODONE ER 10 MG TAB.ER.12H PO SCH (22:00)
--- NOTE | 2017-04-21 09:08 | EKG ---
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
== END 2017-04-20 22:00 | disposition home or self-care (01) ==
LOC: ER 17:23
DX: R42 Dizziness and giddiness (principal); I25.10 Atherosclerotic heart disease of native coronary artery without angina pectoris; E78.00 Pure hypercholesterolemia, unspecified; I10 Essential (primary) hypertension; F10.20 Alcohol dependence, uncomplicated; Z91.041 Radiographic dye allergy status
CPT/HCPCS: 36415; 70450; 80048; 80076; 81001; 82553; 83735; 83880; 84443; 84484; 85025; 85610; 93005; 99285; J8597

== ENCOUNTER → 2017-05-08 | Outpatient (CLI) | payer MEDICARE, BC ==
[2017-04-20 20:33] VITALS: BP 128/74
[~2017-05-08] MED LIST changes: +MECL25TA3 PO
--- NOTE | 2017-05-08 13:24 | KCIC ---
3 views lumbar spine 05/08/2017 Clinical indication: Status post lumbar fusion. No new injury. COMPARISON: MRI lumbar spine 03/12/2017. FINDINGS: There are 5 nonrib-bearing lumbar-type vertebral bodies. Prior posterior instrumentation at L5-S1 with vertical rods and transpedicular screws. No significant change in grade 2 anterolisthesis L5 on S1. There is mild multilevel level lumbar spondylosis with disc space narrowing and marginal osteophyte formation from T12-L1 through L4-L5. Moderate disc degeneration at L5-S1. Calcified atheromatous disease of the abdominal aorta. Mild rightward spinal curvature of the lumbar spine. IMPRESSION: Prior posterior instrumented L5-S1 with stable alignment demonstrating grade 2 anterolisthesis. Electronically signed by: Luis Castro MD (05/08/2017 1:20 PM) [id number]
== END | disposition home or self-care (01) ==
LOC: KCIC 12:37
PROVIDERS: ATTEND Neurological Surgery
DX: M47.896 Other spondylosis, lumbar region (principal); M43.8X6 Other specified deforming dorsopathies, lumbar region; M51.36 Other intervertebral disc degeneration, lumbar region; I70.90 Unspecified atherosclerosis; Z98.1 Arthrodesis status
CPT/HCPCS: 72100

== ENCOUNTER → 2017-06-19 | Outpatient (CLI) | payer MEDICARE, BC | END | disposition home or self-care (01) | LOC: KCIC 13:13 | DX: M16.12 Unilateral primary osteoarthritis, left hip (principal) | CPT/HCPCS: 73502 ==

== ENCOUNTER → 2017-08-31 | Outpatient (CLI) | payer MEDICARE, BC ==
[~2017-08-31] MED LIST changes: -ASPI-482 PO; -ATORVASTATIN CA80 MG PO; -CETI10TA16 PO; +CONTRAST GIVEN MC; -DILT240C2 PO; -DOCU-109 PO; +IOHEXOL 240 MG/ML 100 ML VIAL. IV; +IOHEXOL 300 MG/ML 50 ML VIAL. PO; -MECL25TA3 PO; -OXYC10TA PO; -OXYC10TA45 PO; -OXYC5TAB95 PO; -PARO20TA3 PO; -TAMS0.4C2 PO; -TIZA4TAB PO
[2017-08-31] MEDS: IOHEXOL 300 MG/ML 100ML VIAL. IV (09:45)
[2017-08-31] MEDS: IOHEXOL 240 MG/ML 50ML VIAL. PO (10:35)
== END | disposition home or self-care (01) ==
LOC: CT 13:37
DX: K40.20 Bilateral inguinal hernia, without obstruction or gangrene, not specified as recurrent (principal); I70.0 Atherosclerosis of aorta; M43.17 Spondylolisthesis, lumbosacral region; I10 Essential (primary) hypertension
CPT/HCPCS: 74177; Q9966; Q9967

== ENCOUNTER → 2017-10-29 | Outpatient (CLI) | payer MEDICARE, BC | END | disposition home or self-care (01) | LOC: KCIC MRI 09:05 | DX: S43.431A Superior glenoid labrum lesion of right shoulder, initial encounter (principal); S46.811A Strain of other muscles, fascia and tendons at shoulder and upper arm level, right arm, initial encounter; M25.411 Effusion, right shoulder; X58.XXXA Exposure to other specified factors, initial encounter; Y93.89 Activity, other specified; Y92.89 Other specified places as the place of occurrence of the external cause; Y99.8 Other external cause status | CPT/HCPCS: 73221 ==

== ENCOUNTER 2017-11-30 16:01 | Inpatient (IN) | payer MEDICARE, BC ==
[2017-11-30] MEDS: fentaNYL PF VIAL 100 MCG/2 ML VIAL IV ×3 (16:39→22:28)
[2017-11-30] MEDS ORDERED: 0.9 % SODIUM CHLORIDE 10 ML DISP.SYRIN. IV (18:00)
[2017-11-30] MEDS ORDERED: tiZANidine 4 MG TABLET. PO (18:15)
[2017-11-30] MEDS: oxyCODONE IR 5 MG TABLET PO (18:57)
[2017-11-30] MEDS: ATORVASTATIN CALCIUM 40 MG TABLET. PO (20:22)
[2017-11-30] MEDS: oxyCODONE ER 10 MG TAB.ER.12H PO (20:22)
[2017-11-30] MEDS: DOCUSATE SODIUM 100 MG CAPSULE. PO (20:22)
[2017-11-30] MEDS: ZOLPIDEM 5 MG TABLET. PO (22:31)
[2017-12-01] MEDS: fentaNYL PF VIAL 100 MCG/2 ML VIAL IV (05:29)
[2017-12-01] MEDS: oxyCODONE IR 5 MG TABLET PO ×2 (05:29→09:08)
[2017-12-01] MEDS: TAMSULOSIN 0.4 MG CAP.ER.24H. PO (08:59)
[2017-12-01] MEDS: oxyCODONE ER 10 MG TAB.ER.12H PO (08:59)
[2017-12-01] MEDS: ASPIRIN ENTERIC COATED 81 MG TABLET.DR. PO (09:00)
[2017-12-01] MEDS: DOCUSATE SODIUM 100 MG CAPSULE. PO (09:00)
[2017-12-01] MEDS: LISINOPRIL 10 MG TABLET PO (09:00)
[2017-12-01] MEDS: LORazepam 1 MG TABLET PO (09:15)
== END 2017-12-01 10:38 | disposition home or self-care (01) | DRG 948 ==
LOC: 4 NORTH 16:01
DX: G89.18 Other acute postprocedural pain (principal); F11.20 Opioid dependence, uncomplicated; G47.33 Obstructive sleep apnea (adult) (pediatric); M54.30 Sciatica, unspecified side; Z82.49 Family history of ischemic heart disease and other diseases of the circulatory system; Z96.651 Presence of right artificial knee joint; E78.5 Hyperlipidemia, unspecified; I10 Essential (primary) hypertension
CPT/HCPCS: 94660; J2060; J3010

== ENCOUNTER → 2019-02-11 | Outpatient (CLI) | payer MEDICARE ==
[2017-12-01 10:54] VITALS: BP 134/79
[~2019-02-11] MED LIST changes: +ASPI-482 PO; +ATORVASTATIN CA80 MG PO; +CETI10TA16 PO; -CONTRAST GIVEN MC; +DILT240C2 PO; +DOCU-109 PO; -IOHEXOL 240 MG/ML 100 ML VIAL. IV; -IOHEXOL 300 MG/ML 50 ML VIAL. PO; +LISI10TA2 PO; +MECL25TA3 PO; +OXYC10TA PO; +OXYC10TA46 PO; +OXYC5TAB4 PO; +PARO20TA3 PO; +TAMS0.4C2 PO; +TIZA4TAB2 PO
--- NOTE | 2019-02-11 13:28 | KCIC ---
EXAM: Chest, 2 views. HISTORY: Preoperative evaluation. Pain. COMPARISON: 01/20/2017. FINDINGS: 2 views of chest are obtained. There is no infiltrate, pleural effusion or pneumothorax. The heart is normal in size. IMPRESSION: No acute pulmonary finding. Electronically signed by: Vicky Smith MD (02/11/2019 1:25 PM) [place] [id number]
== END | disposition home or self-care (01) ==
LOC: KCIC 08:49
PROVIDERS: ATTEND Internal Medicine
DX: Z01.818 Encounter for other preprocedural examination (principal); M17.12 Unilateral primary osteoarthritis, left knee
CPT/HCPCS: 71046